=== PATIENT | male | born 1940 | race Caucasian/White ===

== ENCOUNTER → 2023-12-07 11:00 | Outpatient (REF) | payer MEDICARE, OTHER, SELFPAY ==
[2023-12-07 12:16] LABS: Blood Urea Nitrogen 27 mg/dl (9-20); Calcium 9.8 mg/dl (8.4-10.2); Carbon Dioxide 31 mmol/L (22-30); Chloride 96 mmol/L (98-107); Glucose 95 mg/dl (70-99); Potassium 4.5 mmol/L (3.5-5.1); Sodium 137 mmol/L (135-145); eGFR > 60.00
== END ==
LOC: REG 11:00
PROVIDERS: ATTENDING PHYSICIAN Internal Medicine; FAMILY PHYSICIAN Family Medicine
DX: I10 Essential (primary) hypertension (principal)
CPT/HCPCS: 36415; 80048

== ENCOUNTER → 2024-02-29 15:22 | Outpatient (REF) | payer MEDICARE, OTHER, SELFPAY | LOC: HWRAD 15:22 | PROVIDERS: ATTENDING PHYSICIAN Internal Medicine Critical Care Medicine; FAMILY PHYSICIAN Family Medicine | DX: J47.9 Bronchiectasis, uncomplicated (principal) | CPT/HCPCS: 71250 ==

== ENCOUNTER 2024-05-11 07:06 | Day surgery (SDC) | payer MEDICARE, OTHER, SELFPAY ==
--- NOTE | 2024-05-11 08:12 | ITS.CL.CARDI ---
Typing Pool Supervisor - Cardioversion
Cardioversion
Procedure Report:
Date of Procedure: 05/11/24
Procedure: Cardioversion.
Indication: Symptomatic atrial fibrillation.
Performing Physician: Yolande Phipps MD
Technique: The patient was brought to the holding area. Signed informed consent was obtained. A time out was called and performed. The patient was sedated by a member of the anesthesia service. Anticoagulation status was reviewed and was
appropriate. R-2 pads were placed anteriorly and posteriorly. A 200 J synchronized biphasic shock restored normal sinus rhythm without significant bradycardia. There were no complications.
Conclusion: Uncomplicated cardioversion from atrial fibrillation to sinus rhythm.
Recommendation: Routine post cardioversion care. Continue continuous churn buttermaker anticoagulation.
cc: joshua Mann
== END 2024-05-11 08:32 | disposition home or self-care (01) ==
LOC: CATH 07:06
PROVIDERS: ATTENDING PHYSICIAN Internal Medicine Cardiovascular Disease; FAMILY PHYSICIAN Family Medicine; OTHER PHYSICIAN Internal Medicine
DX: I48.0 Paroxysmal atrial fibrillation (principal); I45.10 Unspecified right bundle-branch block; I10 Essential (primary) hypertension; E78.5 Hyperlipidemia, unspecified; I25.10 Atherosclerotic heart disease of native coronary artery without angina pectoris; Z95.1 Presence of aortocoronary bypass graft; Z79.01 Long term (current) use of anticoagulants
CPT/HCPCS: 92960; 93005

== ENCOUNTER 2024-05-28 03:19 | Emergency (ER) | payer MEDICARE, OTHER, SELFPAY ==
[2024-05-28] VITALS (9 sets, daily range): BP systolic 127–176; BP diastolic 58–88; BMI 23.6
[2024-05-28 03:45] LABS: % Basophils 0.5 % (0-2); % Eosinophils 1.1 % (0-6); % Immature Granulocytes 0.4 % (0-0.5); % Lymphocytes 13.2 % (20.5-51.1); % Monocytes 8.8 % (1.7-9.3); Absolute Basophils 0.1 10^3/uL (0-0.2); Absolute Eosinophils 0.1 10^3/uL (0-0.7); Absolute Lymphocytes 1.3 10^3/uL (1.2-3.4); Absolute Monocytes 0.9 10^3/uL (0.1-0.6); Absolute Neutrophils 7.7 10^3/uL (1.4-6.5); Hematocrit 40.5 % (39.0-52.0); Hemoglobin 14.2 g/dL (13.0-18.0); Mean Corp Hgb Conc. 35.1 g/dL (33.0-37.0); Mean Corpuscular Hgb 32.7 pg (27.0-31.0); Mean Corpuscular Volume 93.3 fL (80.0-94.0); Mean Platelet Volume 9.4 fL (7.4-10.4); Nucleated Red Blood Cells % 0 % (-); Platelet Count 318 10^3/uL (130-400); Red Blood Cell Count 4.34 10^6/uL (4.70-6.10); Red Cell Dist. Width 13.3 % (11.5-14.5); White Blood Cell Count 10.1 10^3/uL (4.8-10.8)
[2024-05-28 04:04] LABS: ALT (SGPT) 35 U/L (0-50); AST (SGOT) 33 U/L (17-59); Albumin 4.5 g/dl (3.5-5.0); Alkaline Phosphatase 70 U/L (38-126); Blood Urea Nitrogen 23 mg/dl (9-20); Calcium 9.7 mg/dl (8.4-10.2); Carbon Dioxide 26 mmol/L (22-30); Chloride 101 mmol/L (98-107); Estimated Creatinine Clearance 67 ml/min; Glucose 96 mg/dl (70-99); Potassium 4.6 mmol/L (3.5-5.1); Sodium 141 mmol/L (135-145); Total Bilirubin 0.7 mg/dl (0.2-1.3); Total Protein 7.3 g/dl (6.3-8.2); eGFR > 60.00
--- NOTE | 2024-05-28 06:48 | ED.GENMED ---
History of Present Illness
General
Chief Complaint: Numbness
Source: patient
Exam Limitations: none
Time Seen by Provider: 05/28/24 06:37
History of Present Illness
History of Present Illness:
See MDM
Past History
Past History
ED Past Medical History: Arrthythmia and HTN
ED Past Surgical History: None
Social History
Tobacco: Non-smoker
Alcohol: None
Personal:
Living: with family
Phy Exam
Physical Exam
Physical Exam:
See MDM
Course
Orders/Labs/Results
Orders:
Orders
05/28/24 03:28
Electrocardiogram (*1) Urgent
Reason for Study: Other
Other Reason for Exam: AFIB hx.
05/28/24 03:29
EKG- Treatment ONCE
05/28/24 03:30
Complete Blood Count/With Diff Urgent
Comprehensive Metabolic Panel Urgent
05/28/24 06:47
CT Head W/o Iv Contrast Urgent
Comment:
Reason For Exam: left facial numbness
Abnormal Lab Results
05/28/24
03:30
RBC 4.34 L 10^6/uL
(4.70-6.10)
MCH 32.7 H pg
(27.0-31.0)
Absolute Neuts (auto) 7.7 H 10^3/uL
(1.4-6.5)
Absolute Monos (auto) 0.9 H 10^3/uL
(0.1-0.6)
Neutrophils % 76.0 H %
(42.2-75.2)
Lymphocytes % 13.2 L %
(20.5-51.1)
BUN 23 H mg/dl
(9-20)
05/28/24 03:30
05/28/24 03:30
Vital Signs
Initial and Last Documented VS:
Initial Vital Signs
BP
176/81
05/28/24 03:20
Last Documented Vital Signs
Temp Pulse Resp BP Pulse Ox
97.6 F 82 20 127/88 99
05/28/24 07:24 05/28/24 08:12 05/28/24 08:12 05/28/24 08:12 05/28/24 08:12
MDM/Problems Addressed
Differential Diagnosis Includes:
HPI and MDM Narrative:
84-year-old male presenting for evaluation of left facial numbness. It occurred overnight. Patient states the left facial numbness is actually improving but he is now noticing on the right side. He is unsure if he had a mini stroke or this is
related to somewhat chronic sinusitis. He is compliant with Eliquis. He is worried that his blood pressure was elevated. It is resolving without intervention.
Blood work was done prior to my evaluation and there is no significant abnormalities. Will obtain CT head given that he is on Eliquis. He does understand that he is already medically optimized in regards to stroke prevention
Physical exam
General: Well appearing and non-toxic
HEENT: protecting airway
Neck: appears supple
CV: No evidence of cyanosis. Regular rate and rhythm
Resp: No accessory muscle use
Abd: Non-distended
Extremities: No deformities
Neuro: alert. No focal deficits. Sensation grossly intact to both sides of face
Psych: Normal affect
Skin: Intact
Problems Addressed including Acute and Chronic Conditions affecting care:
1. Resolving facial tingling
Acuity: acute
Prognosis: stable
Details: Will obtain CT head
Updates
[address] head negative. Patient is comfortable going home
Prior to discharge, radiology indicating that there is some evidence of acute sinusitis on the CT scan. This was relayed to patient and he states he will take some Augmentin that he has at home
Differential Diagnosis (but not limited to): TIA, hypocalcemia, sinusitis
Testing considered: Troponin but denies chest pain
Drug therapy (if applicable): OTC meds, please see d/c instruction regarding Rx drugs
Amount and/or Complexity of Data Reviewed
Clinical info obtained from: Patient
External data reviewed: N/A
Labs I independently reviewed (but not limited to): White blood cell count normal, calcium level normal
Radiology: The CT scan was personally and independently reviewed. In addition, official CT report reviewed.
Pulse Ox: not hypoxic
EKG independently reviewed: Sinus rhythm, normal axis, no STEMI
Litigation Associate: Sinus rhythm
Critical Care: N/A
Risk of Complication:
Social Determinants of health: Good social support
Discussed with other providers: N/A
Escalation of Care includes Admit/Obs: After being observed in the Emergency Department, pt stable for discharge.
Occasional wrong word or 'sound a like' substitutions may have occurred due to the inherent limitations of voice recognition software. Read the chart carefully and recognize, using context, where substitutions have occurred.
*Critical Care Note
Total Time (30-74mins, 75-104mins- exclusive of procedures): Not Applicable
ED Attending Note
-
Portions of this chart may have been created with voice recognition software.� Occasional wrong word or��sound alike� substitutions may have occurred due to the inherent limitations of voice recognition software.
Discharge Plan
Departure
Patient Disposition: Home (Routine Discharge)
Date of Disposition: 05/28/24
Time of Disposition: 07:57
Patient with high blood pressure during this ER visit?: Yes
Discharge Problem:
Facial numbness
Instructions: Paresthesia (DC), BLOOD PRESSURE
Prescriptions:
No Action
diltiazem HCl 120 MG capsule,extended release 24hr
120 mg PO Q12H
ramipril 10 MG capsule
10 mg PO DAILY
ezetimibe 10 MG tablet
10 mg PO HS
rosuvastatin 20 MG tablet
20 mg PO QPM
Eliquis 5 MG tablet
5 mg PO BID
coenzyme [id number] 1 CAP capsule
300 mg PO DAILY
Patient Comments:
300 mg once a day
nitroglycerin 0.4 MG tablet, sublingual
0.4 mg sublingual DIRECTED PRN (Reason: chest pain)
finasteride 5 MG tablet
5 mg PO HS
omega [id number] oil [Fish Oil] 1 EACH capsule
1 ea PO DAILY
multivitamin with folic acid [Tab-A-Ilana] 1 TABLET tablet
1 tab PO DAILY
montelukast [Singulair] 10 mg Tablet
10 mg PO DAILY
Referrals:
Nikolay Maurice DO [Family Provider] -
Activity Restrictions/Additional Instructions:
Please return for any worsening symptoms.
You may return at any time if you have further concerns.
Please follow up with your doctor at the first available appointment, preferably this week.
Thank you for choosing [facility].
Interventions
Interventions:
*Risk Screen - Suicide Last Done: 05/28/24 03:21
*General Assessment Last Done: 05/28/24 03:21
*Neglect/Abuse Screening Last Done: 05/28/24 03:21
ED- Fall Risk Assessment Last Done: 05/28/24 07:24
*ED COVID-19 Vaccine History Last Done: 05/28/24 03:33
*Nursing Disposition Last Done: 05/28/24 08:13
ED- Neurological Assessment Last Done: 05/28/24 07:24
Discharge Date and Time
Print Language: JAPANESE
== END 2024-05-28 08:24 | disposition home or self-care (01) ==
LOC: EMR 03:19
PROVIDERS: Emergency Medicine; EMERGENCY PHYSICIAN Student in an Organized Health Care Education/Training Program; FAMILY PHYSICIAN Family Medicine
DX: R20.0 Anesthesia of skin (principal); I10 Essential (primary) hypertension; I48.91 Unspecified atrial fibrillation; Z79.01 Long term (current) use of anticoagulants
CPT/HCPCS: 99284; 70450; 80053; 85025; 93005

== ENCOUNTER → 2024-06-02 15:02 | Outpatient (REF) | payer MEDICARE, OTHER, SELFPAY | LOC: HWRAD 15:02 | PROVIDERS: ATTENDING PHYSICIAN Family Medicine | DX: M54.2 Cervicalgia (principal) | CPT/HCPCS: 72052 ==

== ENCOUNTER → 2024-06-03 13:00 | Outpatient (REF) | payer MEDICARE, OTHER, SELFPAY ==
[2024-06-03 13:24] LABS: % Basophils 0.3 % (0-2); % Eosinophils 0.6 % (0-6); % Immature Granulocytes 0.3 % (0-0.5); % Lymphocytes 15.8 % (20.5-51.1); % Monocytes 10.7 % (1.7-9.3); % Neutrophils 72.3 % (42.2-75.2); Absolute Eosinophils 0.1 10^3/uL (0-0.7); Absolute Lymphocytes 1.2 10^3/uL (1.2-3.4); Absolute Monocytes 0.8 10^3/uL (0.1-0.6); Absolute Neutrophils 5.6 10^3/uL (1.4-6.5); Hematocrit 36.6 % (39.0-52.0); Hemoglobin 12.7 g/dL (13.0-18.0); Mean Corp Hgb Conc. 34.7 g/dL (33.0-37.0); Mean Corpuscular Hgb 32.8 pg (27.0-31.0); Mean Corpuscular Volume 94.6 fL (80.0-94.0); Mean Platelet Volume 9.5 fL (7.4-10.4); Nucleated Red Blood Cells % 0 % (-); Platelet Count 286 10^3/uL (130-400); Red Blood Cell Count 3.87 10^6/uL (4.70-6.10); Red Cell Dist. Width 13.4 % (11.5-14.5); White Blood Cell Count 7.8 10^3/uL (4.8-10.8)
[2024-06-03 13:39] LABS: ALT (SGPT) 30 U/L (0-50); AST (SGOT) 28 U/L (17-59); Albumin 4.1 g/dl (3.5-5.0); Alkaline Phosphatase 66 U/L (38-126); Blood Urea Nitrogen 21 mg/dl (9-20); Calcium 9.2 mg/dl (8.4-10.2); Carbon Dioxide 28 mmol/L (22-30); Chloride 99 mmol/L (98-107); Glucose 107 mg/dl (70-99); Potassium 4.5 mmol/L (3.5-5.1); Sodium 138 mmol/L (135-145); Total Bilirubin 0.4 mg/dl (0.2-1.3); Total Protein 6.7 g/dl (6.3-8.2); eGFR > 60.00
== END ==
LOC: REG 13:00
PROVIDERS: ATTENDING PHYSICIAN Internal Medicine Cardiovascular Disease; FAMILY PHYSICIAN Family Medicine; OTHER PHYSICIAN Internal Medicine
DX: I48.0 Paroxysmal atrial fibrillation (principal); I45.10 Unspecified right bundle-branch block; I25.10 Atherosclerotic heart disease of native coronary artery without angina pectoris; Z01.818 Encounter for other preprocedural examination
CPT/HCPCS: 36415; 80053; 85025; 86850; 86900; 86901; 93005

== ENCOUNTER → 2024-06-06 14:19 | Outpatient (REF) | payer MEDICARE, OTHER, SELFPAY | LOC: RAD 14:19 | PROVIDERS: ATTENDING PHYSICIAN Family Medicine | DX: I65.23 Occlusion and stenosis of bilateral carotid arteries (principal); R20.0 Anesthesia of skin | CPT/HCPCS: 93880 ==

== ENCOUNTER → 2024-06-17 07:42 | Outpatient (REF) | payer MEDICARE, OTHER, SELFPAY | LOC: HWRAD 07:42 | PROVIDERS: ATTENDING PHYSICIAN Surgery Vascular Surgery; FAMILY PHYSICIAN Family Medicine | DX: I65.23 Occlusion and stenosis of bilateral carotid arteries (principal) | CPT/HCPCS: 70496; 70498; Q9967 ==

== ENCOUNTER → 2024-06-21 07:01 | Outpatient (REF) | payer MEDICARE, OTHER, SELFPAY | LOC: HWRCS 07:01 | PROVIDERS: ATTENDING PHYSICIAN Internal Medicine; FAMILY PHYSICIAN Family Medicine | DX: I48.0 Paroxysmal atrial fibrillation (principal); I45.10 Unspecified right bundle-branch block; I25.10 Atherosclerotic heart disease of native coronary artery without angina pectoris; Z95.1 Presence of aortocoronary bypass graft; I10 Essential (primary) hypertension; I36.1 Nonrheumatic tricuspid (valve) insufficiency; I48.3 Typical atrial flutter | CPT/HCPCS: 93306 ==

== ENCOUNTER 2024-06-27 07:30 | Day surgery (SDC) | payer MEDICARE, OTHER, SELFPAY ==
[2024-06-03 12:52] VITALS: BMI 24.8
[2024-06-10 14:05] LABS: Aldosterone, Serum 8.1 ng/dL; Aldosterone/Renin Activ Ratio 0.3 ratio (<=25.0); Renin Activity Results 27.5 ng/mL/hr
[2024-06-27] VITALS (21 sets, daily range): BP systolic 97–149; BP diastolic 55–78
[2024-06-27] MEDS: NSS 500 IV (09:05)
[2024-06-27] MEDS: PROSCAR 5 MG PO (09:09)
--- NOTE | 2024-06-27 13:16 | ITS.CL.ABL ---
Sql Engineer - Ablation
Ablation
Procedure Report:
AFIB ablation:
Mr. Feliciano is a very pleasant 84 yr old gentleman with symptomatic persistent AF s/p AF and flutter ablation with PVI and CTI ablation on 12/12/21 who presented with atypical atrial flutter / fibrillation and was extremely symptomatic requiring
cardioversion and presented today to the EP lab for atrial fibrillation / flutter ablation.
Date of the Procedure:
06/27/2024
Indications:
Persistent atrial fibrillation / atrial flutter
Pre-Operative Diagnosis:
Persistent atrial fibrillation / atrial flutter
Post-Operative Diagnosis:
Persistent atrial fibrillation / atrial flutter
Procedure Performed:
Atrial fibrillation ablation with Pulsed-Field approach for pulmonary vein isolation
Posterior wall isolation
Roof dependent atrial flutter ablation.
Performing Physician:
Heidi Green MD
Assistants:
EP staff
Anesthesia:
See anesthesia records
Detailed Description of the Procedure:
Written informed consent was obtained from the patient after a full explanation of the risks and benefits of the procedure including the risks of sedation and anesthesia.
The patient was brought to the electrophysiology laboratory in stable condition in fasting state. Continuous electrocardiographic and hemodynamic monitoring was initiated.
The initial rhythm was sinus.
The procedure site was meticulously prepared with surgical scrub and allowed to dry with no pooling. Sterile draping was applied to cover the procedure site. The image intensifier was draped with sterile bag and positioned over the patient. After
infusion of local anesthetic, vascular access was obtained under ultrasound guidance and sheaths were placed over guide wire as detailed below.
Sheath and Catheter Placement:
In the right femoral vein, an 8-Bulgarian sheath was placed under ultrasound guidance for use during the ablation procedure and a mapping catheter was intermittently placed in the high right atrium, right ventricle, left atrium. In the right femoral
vein, another 9-Fr sheath was placed for use during intra-cardiac echo procedure.
The sheaths were upgraded as needed during the case. Intra-cardiac catheters were positioned using direct fluoroscopic guidance. Decapolar catheter advanced into CS position. ICE catheter was placed in RA. The following catheters / sheaths were
placed
Sheaths:
��������� 15Fr steerable sheath (FlexCath Cross�, [employer]) in right femoral vein in right femoral vein
��������� 9Fr in right femoral vein
Catheters:
��������� Pentaray mapping catheter � at locations of RA, LA
��������� PulseSelect� PFA catheter
��������� ICE catheter -AcuNav - at locations of RA, SVC, and RV.
��������� Decapolar Bard catheter in RA and CS
Intracardiac ECHO:
An 8-Bulgarian AcuNav intracardiac ECHO (ICE) probe was advanced through the 9-Bulgarian sheath in the right femoral vein into the right atrium under fluoroscopic and ICE ultrasound image guidance and a baseline ECHO study was performed. The left atrial
size was dilated. There was moderate tricuspid regurgitation. The aortic valve was grossly normal. There was normal left ventricular systolic functions. There is no pericardial effusion. All the four veins were identified and has flow identified.
During the procedure, ICE was used for monitoring of complications, guidance of trans-septal puncture, monitor the catheter position and tracking ablation lesions. No change in the pericardial space noted throughout the procedure.
Trans-septal Puncture:
Heparin was initiated and infused to maintain appropriate ACT. A J-tipped guidewire was advanced through the 8-Bulgarian sheath in the right femoral vein into the superior vena cava under fluoroscopic and ICE guidance. The 8-Bulgarian sheath was exchanged
for a FlexCath Cross sheath which was advanced into the superior vena cava. An AcClarivoy transseptal access system was utilized to perform the trans-septal puncture. The apparatus was withdrawn until it was in contact with the fossa ovalis. The
position was adjusted based on fluoroscopy and ultrasound images from ICE. Under fluoroscopic, hemodynamic and ICE ultrasound guidance, left atrium was cannulated by advancing the needle. Once atrial septum was cannulated, the needle was pulled back
and a guide wire was advanced through the needle into the left atrium. The guide wire was advanced into the left superior pulmonary vein. Both the sheath and the dilator was advanced into the left atrium. The dilator with the needle was withdrawn.
Blood was aspirated from the FlexCath cross sheath and arterial blood confirmed. The sheath was flushed. Saline injection noted into the left atrium on ICE. The mapping catheter was advanced in the Agilis sheath into the left pulmonary vein. Left
atrial pressure was measured.
3D Electroanatomic Mapping:
Using the Pentaray mapping catheter advanced through sheath into the left atrium, an electroanatomic map (EAM) of the left atrium was created using CARTO mapping system. The map was used for localization of catheter position and tacking of ablation
lesions. The EAM of the left atrium showed 4 pulmonary veins with two left sided and two right sided veins electrically isolated frin the body the LA. There was extensive areas of low voltage noted in the left atrium with minimal electrical activity
in the posterior wall in atrial fibrillation.
While mapping patient went into atrial flutter 360 msec. It was sustained and appeared to be coming from the LA with roof dependence. The mapping required addition sensing wire and decapolar was placed. Patient was terminated with mapping catheter
causing ectopy.
The LA was dilated in size.
Following the EAM, preparation were made for ablation.
Ablation:
Ablation # 1: Pulmonary vein Isolation:
The left sided veins neded extension of their WACA lesions and right sided had larger are on the RSPV and narrow RSPV WACA lesions and decision was made to extend the antral lesions.
Glycopyrrolate 0.2 mg was given prior to the placement of ablation. Using mEgo� pulsed field ablation system, pulmonary vein isolation was achieved. First the ablation catheter was placed in the LSPV and ostial ablation lesions were performed
in a counter clock li approach all around the PV ostium circumferentially. Then the catheter was placed on the antral location and multiple ablation lesions were placed circumferentially on the antrum of the vein.
In the similar fashion, the LIPV were isolated.
Then the catheter was moved to right sided veins. The ostial and antral ablations were placed as noted above to the RSPV and RIPV.
The arrhtyhmia was mainly coming from LA and mapping showed it is roof dependent atrial flutter.
Ablation # 2: Atrial flutter ablation:
The atrial flutter was mapped and was 370 ms cycle length. Using the pulsed select ablation catheter, the roof of the left atrium was ablated. The tachycardia terminated into normal sinus rhythm.
Further ablation lesions were placed on the posterior wall at the remaining channels there was connecting. No sign of any electrical activity left on the posterior wall at the end of the case.
Ablation # 3: Posterior wall isolation:
Using the pulsed field ablation catheter, the catheter was placed on the posterior wall and moved around the posterior wall to have adequate contact and ablations were placed isolating the posterior wall.
Post ablation Electroanatomic mapping:
Once ablation was completed, the EAM of the LA was done again in sinus rhythm with excellent demarcation of LA myocardium and isolated antral tissue.
EPS and Confirmation of the PVI and bidirectional block:
Following achievement of entrance block at the pulmonary veins, pacing from the pentaray catheter in each of the four veins at 10 milliamps for 2 milliseconds showed entrance and exit block. All PVI were rechecked at the end of the case and remained
isolated with dissociated and local capture with pacing. Entrance and exit block were demonstrated in all veins.
Procedure End
ICE study was done again that showed no epicardial accumulation. No complications noted.
Following the completion of the EP study, catheters were removed. Protamine 40 mg was given at the end of the procedure and ACT was checked repeatedly. The sheaths were removed and hemostasis achieved with VASCADE and manual compression after
acceptable ACT is achieved.
Left atrial Pressure:
Pre-Procedure: Mean LA pressure was 11mmHg
Post-Procedure: Mean LA pressure was 9mmHg
Post-Procedure: Mean LR pressure was 5mmHg
Estimated Blood loss:
<10 cc
Specimens Removed:
None.
Implants / Devices:
None
Urine output:
None
Packs / Drains/ Tubes:
None
Instrument / Sponge Count Correct:
Yes
Complications of the Procedure:
None
Condition of Patient at Time of Transfer:
Hemodynamically stable with no neurological or vascular compromise.
Summary:
Successful atrial fibrillation ablation with Pulsed Field approach for pulmonary vein isolation, posterior wall isolation and atypical roof dependent flutter ablation
Figures from the Procedure:
Figure 1: The electroanatomic mapping (EAM) of the left atrium with bipolar voltage (purple indicates normal electrical activity with rod as no myocardial muscle electric activity indicating a line of block or scar.
[2024-06-27] MEDS: TYLENOL 650 MG PO (13:37)
[2024-06-27] MEDS: ANESTHETIC LOZENGE 1 LOZENGE PO (13:39)
--- NOTE | 2024-06-27 15:46 | W.PN.UPDATE ---
Update Note
Progress Note Update
Pt seen post PFA. Right groin site with vascade closure, no ht/bleeding, oob ambulating, urinating without difficulty. Post EKG NSR 80s w/inc RBBB as before, no acute changes. Resume eliquis tonight, continue other meds as before. Followup at [facility] as
scheduled. Home today if groin site/tele remain stable.
== END 2024-06-27 15:30 | disposition home or self-care (01) ==
LOC: CATH 07:30
PROVIDERS: ATTENDING PHYSICIAN Internal Medicine Cardiovascular Disease; FAMILY PHYSICIAN Family Medicine; OTHER PHYSICIAN Internal Medicine; OTHER PHYSICIAN Physician Assistant Medical
DX: I48.19 Other persistent atrial fibrillation (principal); I48.92 Unspecified atrial flutter; I10 Essential (primary) hypertension; Z95.1 Presence of aortocoronary bypass graft; I25.10 Atherosclerotic heart disease of native coronary artery without angina pectoris; Z95.5 Presence of coronary angioplasty implant and graft; E78.5 Hyperlipidemia, unspecified; K44.9 Diaphragmatic hernia without obstruction or gangrene; K21.9 Gastro-esophageal reflux disease without esophagitis; J44.9 Chronic obstructive pulmonary disease, unspecified; R00.1 Bradycardia, unspecified; I45.10 Unspecified right bundle-branch block; R91.8 Other nonspecific abnormal finding of lung field; J45.30 Mild persistent asthma, uncomplicated; J47.9 Bronchiectasis, uncomplicated; J18.9 Pneumonia, unspecified organism; Z79.01 Long term (current) use of anticoagulants
CPT/HCPCS: C1730; C1733; C1769; C1732; C1892; C1759; 36415; 82088; 84244; 85347; 93005; 93655; 93656; 93657; C1760

== ENCOUNTER → 2024-07-18 08:51 | Outpatient (REF) | payer MEDICARE, OTHER, SELFPAY ==
[2024-07-18 11:06] LABS: Cortisol, Random 10.7 ug/dl; TSH Reflex To Free T4 1.71 uIU/ml (0.47-4.68)
== END ==
LOC: REG 08:51
PROVIDERS: ATTENDING PHYSICIAN Specialist; FAMILY PHYSICIAN Family Medicine
DX: R63.4 Abnormal weight loss (principal); R09.89 Other specified symptoms and signs involving the circulatory and respiratory systems
CPT/HCPCS: 36415; 82533; 83835; 84443

== ENCOUNTER → 2024-08-05 07:03 | Outpatient (REF) | payer MEDICARE, OTHER, SELFPAY | LOC: RAD 07:03 | PROVIDERS: ATTENDING PHYSICIAN Specialist; FAMILY PHYSICIAN Family Medicine | DX: R79.89 Other specified abnormal findings of blood chemistry (principal); R09.89 Other specified symptoms and signs involving the circulatory and respiratory systems | CPT/HCPCS: 93975 ==

== ENCOUNTER → 2024-08-22 08:38 | Outpatient (REF) | payer MEDICARE, OTHER, SELFPAY | LOC: RAD 08:38 | PROVIDERS: ATTENDING PHYSICIAN Surgery | DX: K44.9 Diaphragmatic hernia without obstruction or gangrene (principal) | CPT/HCPCS: 74246 ==

== ENCOUNTER 2024-09-08 06:26 | Day surgery (SDC) | payer MEDICARE, OTHER, SELFPAY | END 2024-09-08 09:54 | disposition home or self-care (01) | LOC: GI 06:26 | PROVIDERS: ATTENDING PHYSICIAN Internal Medicine Gastroenterology | DX: K44.9 Diaphragmatic hernia without obstruction or gangrene (principal); Q39.9 Congenital malformation of esophagus, unspecified; K29.70 Gastritis, unspecified, without bleeding | CPT/HCPCS: 43239; 88305; 88342 ==

== ENCOUNTER → 2024-10-24 09:45 | Outpatient (REF) | payer MEDICARE, OTHER, SELFPAY ==
[2024-10-24 11:39] LABS: ALT (SGPT) 29 U/L (0-50); AST (SGOT) 27 U/L (17-59); Albumin 4.1 g/dl (3.5-5.0); Alkaline Phosphatase 71 U/L (38-126); Blood Urea Nitrogen 29 mg/dl (9-20); Calcium 9.3 mg/dl (8.4-10.2); Carbon Dioxide 30 mmol/L (22-30); Chloride 100 mmol/L (98-107); Glucose 88 mg/dl (70-99); HDL Cholesterol 48 mg/dl; LDL Cholesterol, Calculated 53 mg/dl; Potassium 4.7 mmol/L (3.5-5.1); Sodium 139 mmol/L (135-145); Total Bilirubin 0.6 mg/dl (0.2-1.3); Total Cholesterol 113 mg/dl (50-199); Triglyceride 60 mg/dl (10-149); Very Low Density Lipoprotein 12 mg/dl (0-30); eGFR > 60.00
== END ==
LOC: REG 09:45
PROVIDERS: ATTENDING PHYSICIAN Internal Medicine; FAMILY PHYSICIAN Family Medicine
DX: E78.2 Mixed hyperlipidemia (principal)
CPT/HCPCS: 36415; 80053; 80061

== ENCOUNTER 2024-10-26 08:41 | Day surgery (SDC) | payer MEDICARE, OTHER, SELFPAY ==
[2024-10-24 08:33] VITALS: BMI 24.4
== END 2024-10-26 11:00 | disposition home or self-care (01) ==
LOC: CATH 08:41
PROVIDERS: ATTENDING PHYSICIAN Internal Medicine
DX: I48.0 Paroxysmal atrial fibrillation (principal); I48.92 Unspecified atrial flutter; I10 Essential (primary) hypertension; E78.5 Hyperlipidemia, unspecified; I25.10 Atherosclerotic heart disease of native coronary artery without angina pectoris; Z95.1 Presence of aortocoronary bypass graft; Z95.5 Presence of coronary angioplasty implant and graft; K21.9 Gastro-esophageal reflux disease without esophagitis; J44.9 Chronic obstructive pulmonary disease, unspecified; Z79.01 Long term (current) use of anticoagulants
CPT/HCPCS: 92960; 93005

== ENCOUNTER 2024-12-12 17:08 | Inpatient (IN) | payer MEDICARE, OTHER, SELFPAY ==
[2024-11-28 14:11] VITALS: BMI 24.4
[2024-12-12] VITALS (14 sets, daily range): BP systolic 120–172; BP diastolic 51–80; BMI 24.4; BMI 26.2
[2024-12-12] MEDS: TYLENOL 1000 MG PO (11:13)
[2024-12-12] MEDS: NORMOSOL-R/PLASMALYTE-A 1000 IV (11:14)
--- NOTE | 2024-12-12 12:01 | HP.FOC2 ---
Focused History & Physical
Chief Complaint
HPI:
Chief Complaint: Symptomatic type III paraesophageal hernia
HPI / Indication for Planned Procedure: Patient is an 84-year-old male recently seen in outpatient surgical evaluation secondary to a progressively symptomatic type III paraesophageal hernia. He has modest to moderate dysphagia at times. He has
occasional regurgitation with lying flat and elevates the head of his bed to avoid symptoms. Upper GI endoscopy on 09/08/2024 confirmed the presence of a large hiatal hernia, irregular Z-line, mild inflammation within the stomach.
CT imaging has confirmed the presence of a sizable type III paraesophageal hernia containing at least 50% of the stomach within the intrathoracic space and a crural defect approximately 4 to 5 cm in width. He presents today for scheduled operative
correction.
Relevant Past Medical History: Other (P A-fib/flutter, hypertension, hyperlipidemia, CAD, PEH/GERD, bradycardia, incomplete right bundle branch block, COPD, pulmonary nodule, asthma, bronchiectasis, BPH)
Relevant Social History: Negative
Relevant Family History: Negative
Relevant Past Surgical History: Positive for (Multiple ablation procedures, multiple cardioversions, inguinal hernia repair and shoulder arthroscopy)
Review of Systems
Review of Pertinent Systems: All Systems Negative
Medication
See Medication form for detailed medications: Yes
Medication List (including Herbals & OTC):
apixaban 5 mg tablet (Eliquis) 5 mg PO BID 02/23/19
diltiazem HCl 120 mg capsule,extended release 24 hr 120 mg PO BID 02/23/19
ezetimibe 10 mg tablet 10 mg PO 1500 02/23/19
rosuvastatin 20 mg tablet 20 mg PO 1500 02/23/19
nitroglycerin 0.4 mg sublingual tablet 0.4 mg sublingual DIRECTED PRN chest pain 09/24/20
coenzyme Q10 100 mg capsule (CoQ-10) 100 mg PO QPM 06/02/24
finasteride 5 mg tablet 5 mg PO HS 06/27/24
hydrochlorothiazide 25 mg tablet 25 mg PO DAILY 10/20/24
multivitamin 1 tab PO DAILY 10/20/24
ramipril 2.5 mg capsule 2.5 mg PO HS 10/20/24
ramipril 5 mg capsule 5 mg PO BID 12/05/24
Medications Reviewed: Yes
Allergies and Reactions
Patient has Allergies: No
Noted Allergies and Reactions:
Allergy/AdvReac Type Severity Reaction Status Date / Time
No Known Allergies Allergy Verified 12/12/24 10:50
Pertinent Physical Exam
All Other Systems: Negative
Head/Neck: Normal
Lungs: Normal
Heart: Normal
Abdomen: Normal
Neurological: Normal
Diagnosis / Assessment
84-year-old male presenting for scheduled operative correction of a symptomatic type III paraesophageal hernia
Plan / Procedure
Robotic assisted laparoscopic repair of paraesophageal hernia with probable fundoplication, possible mesh; intraoperative EGD
Anesthesia/Sedation to be done by Anesthesia Provider: Yes
--- NOTE | 2024-12-12 12:06 | W.SUR.PREOP ---
Pre-Operative Surgical Note
-
I have examined this patient prior to the performance of the scheduled procedure.
The patient's condition is unchanged from the time of the current History and
Physical and the patient is able to undergo the scheduled procedure.
--- NOTE | 2024-12-12 17:02 | W.IMMPOSTOP ---
Addendum entered and electronically signed by Jose Oneill MD 12/13/24 16:27:
#[id number]
Original Note:
Surgical Immed Post Op Note
-
Primary Surgeon: Jose Oneill MD
Assisting Surgeon: Maricel RIOS
Pre-op Diagnosis: Large type III PEH
Post-op Diagnosis: Large type III PEH
Procedure Performed: RAL PEH repair with mesh, Toupet fundoplication; intraop EGD
Anesthesia Type: GETA + 0.25% Marcaine
Specimen / Cultures: none
Estimated Blood Loss: 20mL
Complications: none immediate
Operative Findings: Large type III paraesophageal hernia with majority of the stomach within the intrathoracic space and large hiatal hernia sac predominantly within the right chest. Entire hernia sac and contents fully reduced. Esophageal
mobilization to allow for 3 cm intra-abdominal esophageal length without tension. Phasix ST mesh pledgeted posterior crural closure (1.5 cm x 5 cm strip x 2 placed on the right and left coco). Posterior crural closure with 0 silk. Right anterior
lateral and left anterior lateral crural closure with 0 silk. 58 [place] bougie placed to confirm size of crural closure and assist with formation of Toupet fundoplication. No evidence of pleural injury during dissection.
Patient with atrial fibrillation with RVR intraoperatively controlled with beta-blockade and Cardizem drip with subsequent adequate rate control and hemodynamic stability. Prior hx of PAfib, was in sinus rhythm at start of procedure.
Postop will monitor in IMU
Patient's firer marine, Dr. Mann, consulted and updated postoperatively via [place] text.
--- NOTE | 2024-12-12 17:24 | CON.CAR ---
Addendum entered and electronically signed by Polo Mann MD 12/12/24 17:53:
84 yo male with paroxysmal A fib s/p ablation x2, then DCCV 10/2024, CAD/CABG is admitted s/p para-esophageal hernia repair. We are consulted for recurrence of A fib with RVR. He is lethargic post op. Exam with tachy, irregular rhythm, no murmurs,
no edema. Tele: A fib with RVR.
A fib with RVR. Eliquis on hold for 72 hrs (discussed with surgical team). Will focus on rate control. Continue diltiazem drip overnight. Requires monitoring on tele.
Original Note:
Consultation
Consultation Request
Date/Time Consultation Requested: 12/12/241699
Date/Time Consultation Performed: 12/12/241714
Requesting Provider: Dr. Oneill
Performing Provider: Aga KIDD for Dr. Mann
Reason for Consultation: AFIB
Medical History
-
Chief Complaint: paraesophageal hernia surgery
History of Present Illness:
84 y/o male (cardiology patient of Dr. Mann) with PAF/flutter hx ablation 2021 and 2023, recent CV 10/2024 (on Eliquis, though held for surgery), CAD s/p CABG 1998, hypertension, moderate TR, pulm HTN, and COPD is s/p surgery for his paraesophageal
hernia. We are consulted for AFIB with RVR intra-op. Post-op, he feels 'wiped out' (s/p surgery), but has no CP or palpitations. He remains in AFIB. Rates in 120's currently. BP is stable. He is in no distress at the time of my assessment.
Past Medical History
Past Medical History: Arrhythmias, CAD, COPD, HTN and Other (as above)
Social History
Tobacco: Non-Smoker
Family History
Family History: Reviewed & Not Pertinent
Allergies / Home Medications
Allergy/AdvReac Type Severity Reaction Status Date / Time
No Known Allergies Allergy Verified 12/12/24 10:50
�Medication �Instructions �Recorded �Confirmed �Type
apixaban 5 mg tablet (Eliquis) 5 mg PO BID 02/23/19 12/12/24 History
diltiazem HCl 120 mg 120 mg PO BID 02/23/19 12/12/24 History
capsule,extended release 24 hr
ezetimibe 10 mg tablet 10 mg PO 1500 02/23/19 12/12/24 History
rosuvastatin 20 mg tablet 20 mg PO 1500 02/23/19 12/12/24 History
nitroglycerin 0.4 mg sublingual 0.4 mg sublingual DIRECTED PRN 09/24/20 12/12/24 History
tablet chest pain
coenzyme Q10 100 mg capsule 100 mg PO QPM 06/02/24 12/12/24 History
(CoQ-10)
finasteride 5 mg tablet 5 mg PO HS 06/27/24 12/12/24 History
hydrochlorothiazide 25 mg tablet 25 mg PO DAILY 10/20/24 12/12/24 History
multivitamin 1 tab PO DAILY 10/20/24 12/12/24 History
ramipril 2.5 mg capsule 2.5 mg PO HS 10/20/24 12/12/24 History
ramipril 5 mg capsule 5 mg PO BID 12/05/24 12/12/24 History
Review of Systems
-
History Source: Patient
All other systems: Negative unless noted
Constitutional: Other ('wiped out')
Physical Exam
Vital Signs
Temp Pulse Resp BP Pulse Ox
97.5 F 115 17 129/67 99
12/12/24 17:00 12/12/24 17:15 12/12/24 17:15 12/12/24 17:15 12/12/24 17:15
Physical Exam
General: Well Developed, Well Nourished and No Apparent Distress
HEENT: Normocephalic and Anicteric
Respiratory: Clear, Non Labored Respirations and Other (on face mask post-op)
Cardiac: Irregular Rhythm
Musculoskeletal: No Edema
Skin: Warm and Dry
Neuro: Awake, Alert and Oriented
Psych: Calm
Impression / Plan
-
Paraesophageal hernia s/p repair, Dr. Oneill 12/12/24:
-post-op management per surgery
-post-op EKG ordered
AFIB with RVR, paroxysmal, recurrent:
-continue IV diltiazem, which requires intensive monitoring
-Eliquis held- resume when safe post-op (sounds like that will be 72 hours post surgery)
-follow telemetry
CAD with hx CABG:
-stable without CP
-on Eliquis, statin as OP
HTN:
-stable
-monitor post-op on dilt drip
Data Reviewed
-
EKG: Tracing Personally Visualized and interpreted (NSR pre-op. New one ordered.)
Radiology: Report Reviewed by me (upper GI series 08/22/24: Large hiatal hernia. No overt evidence for volvulus or obstruction. 2. Moderate presbyesophagus.)
Medical Tests (Nuc Med, Echo etc): Report Reviewed by me (echo 06/21/24: Normal LV size and systolic function. LVEF 55 to 60%. Mild concentric left ventricular hypertrophy. Normal diastolic function. Normal RV size and function. Mild to
moderate tricuspid regurgitation. Mildly elevated PASP (43 mmHg). )
Labs: Labs Reviewed by me
[2024-12-12] MEDS: CARDIZEM 125 IV (17:29)
[2024-12-12] MEDS: NSS 1000 IV (17:38)
[2024-12-12] MEDS: PROSCAR 5 MG PO (20:30)
[2024-12-12] MEDS: DILAUDID 0.5 MG IV (20:31)
--- NOTE | 2024-12-12 22:14 | PTCARENOTE ---
Received verbal report from DAYNA Cornell. Pt arrived to floor via bed. Oxygen saturation is 97% on 2L. NSR on monitor, confirmed with EKG. Pt had a Cardizem gtt infusing at time of arrival to floor. Pt's hr dropped to 60-70s. BENJA Worrell made aware,
Cardizem gtt is no longer infusing (see worklist). Pt c/o 03/16 pain throughout his abdomen and both of his shoulders, PRN IV Dilaudid administered per Rx (see MAR). Pt has NSS infusing at 100 mL/hr. Assessment and VS as documented. Admission
completed. Pt resting in bed with call albarado in reach.
[2024-12-13] VITALS (10 sets, daily range): BP systolic 122–148; BP diastolic 56–93; BMI 26.1
[2024-12-13] MEDS: NSS 1000 IV (03:05)
[2024-12-13 03:26] LABS: Hematocrit 38.6 % (39.0-52.0); Mean Corp Hgb Conc. 36.3 g/dL (33.0-37.0); Mean Corpuscular Hgb 34.6 pg (27.0-31.0); Mean Corpuscular Volume 95.3 fL (80.0-94.0); Mean Platelet Volume 9.2 fL (7.4-10.4); Platelet Count 270 10^3/uL (130-400); Red Blood Cell Count 4.05 10^6/uL (4.70-6.10); White Blood Cell Count 12.9 10^3/uL (4.8-10.8)
[2024-12-13 03:48] LABS: Blood Urea Nitrogen 26 mg/dl (9-20); Calcium 8.9 mg/dl (8.4-10.2); Carbon Dioxide 29 mmol/L (22-30); Chloride 99 mmol/L (98-107); Estimated Creatinine Clearance 53 ml/min; Glucose 147 mg/dl (70-99); Potassium 5.7 mmol/L (3.5-5.1); Sodium 137 mmol/L (135-145); eGFR > 60.00
--- NOTE | 2024-12-13 04:12 | W.PN.UPDATE ---
Update Note
Progress Note Update
K level is 5.7 this am, one time order of Davema was given.
[2024-12-13] MEDS: LOKELMA 5 GRAM PO (04:38)
[2024-12-13] MEDS: DILAUDID 0.25 MG IV (04:40)
--- NOTE | 2024-12-13 07:14 | W.PN.GS2 ---
Addendum entered and electronically signed by Jose Oneill MD 12/13/24 07:44:
Lokelma administered this AM
repeat K in afternoon
hold HCTZ
Original Note:
Today's Communication / Plan
-
`
Assessment / Plan
-
Assessment: 84-year-old male POD #1 status post RAL repair paraesophageal hernia with toupet fundoplication; EGD
Intraoperative A-fib with RVR - appears to predominantly be in sinus rhythm now
History P A-fib, CAD status post CABG, hypertension, COPD
AFVSS
Doing well postop
Hyperkalemia
Plan: Multimodal pain control options -stopping Toradol/add p.o. Tylenol
Renewed IV fluids
Clear liquid diet and advance to full liquids as tolerated today with supplements; okay for p.o. meds
Up out of bed to chair/ambulate/encourage I-S use
Appreciate cardiology assistance with postoperative care
Eliquis/therapeutic anticoagulation will be held 72 hours postop
Lovenox/SCD/ambulation for VTE prophylaxis
Protonix for GI prophylaxis (gastritis/esophagitis visualized on endoscopy)
Subjective Data
-
Date of Service: December 13, 2024
Patient seen and examined.
No significant postop abdominal pain
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
Offers no additional complaints.
Feels well. No nausea
Objective Data
-
Intake and Output
12/12/24 12/13/24 12/14/24
06:59 06:59 06:59
Intake Total 810 / 810
Output Total 950 / 950
Balance -140 / -140
Intake:
IV fluids (Total) 800 / 800
Normosol 100 / 100
IV piggybacks 10 / 10
Output:
Urine, Ramirez 950 / 950
Vital Signs
Temp Pulse Resp BP Pulse Ox
98.4 F 76 17 141/76 95
12/13/24 02:54 12/13/24 06:00 12/13/24 06:00 12/13/24 06:00 12/13/24 06:00
Lab Results
12/13/24 03:13
12/13/24 03:13
Calcium 8.9 mg/dl (8.4-10.2) 12/13/24 03:13
Physical Exam
-
NAD AAO x 3
Sinus rhythm with PACs
ABD: Soft, nondistended, minimal incisional tenderness. Incisions with glue dressings.
Patient has a ramirez catheter: No
[2024-12-13] MEDS: NSS (PRESERVATIVE FREE) 10 ML IV (07:53)
[2024-12-13] MEDS: PROTONIX IV 40 MG IV (07:54)
--- NOTE | 2024-12-13 08:25 | W.PN.CD ---
Addendum entered and electronically signed by Dillan Boyce MD 12/13/24 08:49:
Resume other anti-HTN meds when able
Resume Eliquis when OK from surgical perspective
We will sign off please call with questions/concerns.
Original Note:
Today's Communication / Plan
-
Start PO dilt
EKG today now back in SR
Impression / Plan
-
Paraesophageal hernia s/p repair, Dr. Oneill 12/12/24:
-post-op management per surgery
-post-op EKG ordered
AFIB with RVR, paroxysmal, recurrent:back IN SR
-Resume PO dilt, now back in SR confirm with ECG
-Eliquis held- resume when safe post-op (sounds like that will be 72 hours post surgery)
-follow telemetry
CAD with hx CABG:
-stable without CP
-on Eliquis, statin as OP
HTN:
-stable
-monitor post-op on dilt drip
Subjective: Feels good concerned about BP meds
Physical Exam
Vital Signs/Labs
Vital Signs
Temp Pulse Resp BP Pulse Ox
98.1 F 76 17 141/76 95
12/13/24 07:05 12/13/24 06:00 12/13/24 06:00 12/13/24 06:00 12/13/24 06:00
12/12/24 12/13/24 12/14/24
06:59 06:59 06:59
Actual Weight 182 lb
12/13/24 03:13
12/13/24 03:13
Physical Exam
Constitutional: No acute distress and Comfortable
EENT: Anicteric
Cardiovascular: Rhythm & rate is regular
Respiratory: Respiratory effort normal and Lungs clear to auscul.
GI: Soft
Neuro/Psych: AO x 3
Data Reviewed
-
Date of Service: December 13, 2024
EKG: Tracing Personally Visualized and interpreted (sr)
Echo: Report Reviewed by me
Labs: Labs Reviewed by me
[2024-12-13] MEDS: CARDIZEM CD 120 MG PO ×2 (08:45→20:34)
[2024-12-13] MEDS: TYLENOL 650 MG PO ×2 (12:00→20:34)
--- NOTE | 2024-12-13 16:47 | CM ---
Patient with Dx Paraesophageal hernia s/p repair, AFIB with RVR. O2 2L. Telemetry- NSR. Full liquids. Receiving IV Dilaudid prn, IV Protonix.
Met with patient who resides alone in a 2 story house with 1 step at entrance.
The patient was independent in ADLs and ambulation.
He was active, plays golf, shops and drives.
DME - nebulizer
No prior VN or SNF.
PCP - Nikolay Maurice
Pharmacy - [facility], [place]
No CM d/c needs identified.
Plan home.
[2024-12-13] MEDS: LOVENOX 40 MG SC (17:10)
[2024-12-13 17:35] LABS: Potassium 4.7 mmol/L (3.5-5.1)
--- NOTE | 2024-12-13 18:27 | PTCARENOTE ---
Received pt from IMU, walked from wheelchair to bed. Pt ambulatory in room independently. Abdomen with 5 stab sites and glue present. Pt ordering full liqs for dinner. Acclimated to room.
[2024-12-13] MEDS: ALTACE 5 MG PO (21:01)
[2024-12-13] MEDS: PROSCAR 5 MG PO (22:26)
[2024-12-13] MEDS: ALTACE 2.5 MG PO (22:26)
--- NOTE | 2024-12-14 07:12 | W.PN.GS2 ---
Today's Communication / Plan
-
d/c
Assessment / Plan
-
Assessment: 84-year-old male POD #2 status post RAL repair paraesophageal hernia with toupet fundoplication; EGD
Intraoperative A-fib with RVR - sinus rhythm now
History P A-fib, CAD status post CABG, hypertension, COPD
AFVSS
Doing very well well postop
Hyperkalemia - resolved after Lokelma
Plan: stable for d/c home
post op fundoplication diet on d/c instructions reviewed
hold eliquis 72hrs post op
resume HCTZ tomorrow
follow up in 2-3 weeks
Subjective Data
-
Date of Service: December 14, 2024
pt seen and examined
feels well and ready for d/c
minimal post op discomfort, tylenol only for pain relief
torie full liquids, no dysphage, no GERD
Objective Data
-
Intake and Output
12/13/24 12/14/24 12/15/24
06:59 06:59 06:59
Intake Total 810 / 810 400 / 400
Output Total 950 / 950
Balance -140 / -140 400 / 400
Intake:
IV fluids (Total) 800 / 800 400 / 400
Normosol 100 / 100
IV piggybacks
Output:
Urine, Lee 950 / 950
Other:
Number of approximated MODERATE 2
amounts of urine
Vital Signs
Temp Pulse Resp BP Pulse Ox
98.5 F 86 16 141/69 95
12/13/24 23:19 12/13/24 23:19 12/13/24 23:19 12/13/24 23:19 12/13/24 23:19
Calcium 8.9 mg/dl (8.4-10.2) 12/13/24 03:13
Physical Exam
-
NAD AAOx3
ABD: soft, ND, mild TTP at incision sites
incisions with glue dressings
--- NOTE | 2024-12-14 07:19 | W.DS.TRANS ---
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
-
Discharge Instructions:
Sleep Apnea Risk Low
Discharge Diagnosis/Procedures Robotic assisted laparoscopic repair of
paraesophageal hernia, toupet fundoplication;
EGD
Diet Other diet
Additional Diets See attached postoperative instructions below.
Activity No strenuous activity
Additional Activity No lifting over 15 pounds for 3 months postop.
Walking, standing, stairs and routine light
activities are all okay as tolerated.
Driving Restrictions No driving for 2 to 3 days or if using narcotics
Bathing Restrictions OK to Shower
Wound Care Glue at surgical sites typically peels off in 2
to 3 weeks
Instructions:
Stand-Alone Forms:
Changes to Home Medications: No
Discharge Medications:
DC Medications w/original date entered in [employer]
apixaban 5 mg tablet (Eliquis) 5 mg PO BID Blood Clot Prevention/Tx 02/23/19
diltiazem HCl 120 mg capsule,extended release 24 hr 120 mg PO BID Heart Disease/Condition 02/23/19
ezetimibe 10 mg tablet 10 mg PO 1500 High Cholesterol 02/23/19
rosuvastatin 20 mg tablet 20 mg PO 1500 High Cholesterol 02/23/19
nitroglycerin 0.4 mg sublingual tablet 0.4 mg sublingual DIRECTED PRN chest pain 09/24/20
coenzyme Q10 100 mg capsule (CoQ-10) 100 mg PO QPM Supplement 06/02/24
finasteride 5 mg tablet 5 mg PO HS Urinary Issue 06/27/24
hydrochlorothiazide 25 mg tablet 25 mg PO DAILY Blood Pressure 10/20/24
multivitamin 1 tab PO DAILY Supplement 10/20/24
ramipril 2.5 mg capsule 2.5 mg PO HS Blood Pressure 10/20/24
ramipril 5 mg capsule 5 mg PO BID Blood Pressure 12/05/24
acetaminophen 325 mg tablet 650 mg (2 x 325 mg) PO Q4HPRN PRN mild pain #1 tab 12/14/24
polyethylene glycol 3350 17 gram/dose oral powder (Miralax) 4 g PO DAILY PRN Constipation #119 grams 12/14/24
Home Medication Changes
Pending Results: No
[2024-12-14 07:30] VITALS: BP 164/81
[2024-12-14 07:57] LABS: Hematocrit 39.2 % (39.0-52.0); Hemoglobin 13.6 g/dL (13.0-18.0); Mean Corp Hgb Conc. 34.7 g/dL (33.0-37.0); Mean Corpuscular Volume 95.1 fL (80.0-94.0); Mean Platelet Volume 9.5 fL (7.4-10.4); Platelet Count 271 10^3/uL (130-400); Red Blood Cell Count 4.12 10^6/uL (4.70-6.10); Red Cell Dist. Width 13.4 % (11.5-14.5); White Blood Cell Count 15.1 10^3/uL (4.8-10.8)
[2024-12-14 08:08] LABS: Blood Urea Nitrogen 19 mg/dl (9-20); Calcium 9.1 mg/dl (8.4-10.2); Carbon Dioxide 32 mmol/L (22-30); Chloride 97 mmol/L (98-107); Estimated Creatinine Clearance 65 ml/min; Glucose 96 mg/dl (70-99); Potassium 4.3 mmol/L (3.5-5.1); Sodium 137 mmol/L (135-145); eGFR > 60.00
[2024-12-14] MEDS: NSS (PRESERVATIVE FREE) 10 ML IV (08:23)
[2024-12-14] MEDS: CARDIZEM CD 120 MG PO (08:23)
[2024-12-14] MEDS: ALTACE 5 MG PO (08:23)
[2024-12-14] MEDS: PROTONIX IV 40 MG IV (08:23)
--- NOTE | 2024-12-14 09:12 | CM ---
Chart reviewed and plan is to home today no needs.
Plan; Home no needs.
== END 2024-12-14 10:16 | disposition home or self-care (01) | DRG 327 ==
LOC: 4 WEST ACU 17:08
PROVIDERS: ADMITTING PHYSICIAN Surgery; CONSULT PHYSICIAN Internal Medicine; FAMILY PHYSICIAN Family Medicine
PROC: 0DJ08ZZ Inspection of Upper Intestinal Tract, Via Natural or Artificial Opening Endoscopic (ICD-10-PCS; 2024-12-13)
PROC: 3E0M45Z Introduction of Adhesion Barrier into Peritoneal Cavity, Percutaneous Endoscopic Approach (ICD-10-PCS; 2024-12-13)
PROC: 0BQT4ZZ Repair Diaphragm, Percutaneous Endoscopic Approach (ICD-10-PCS; 2024-12-13)
PROC: 8E0W4CZ Robotic Assisted Procedure of Trunk Region, Percutaneous Endoscopic Approach (ICD-10-PCS; 2024-12-13)
PROC: 0DV44ZZ Restriction of Esophagogastric Junction, Percutaneous Endoscopic Approach (ICD-10-PCS; 2024-12-13)
DX: K44.9 Diaphragmatic hernia without obstruction or gangrene (principal); I97.791 Other intraoperative cardiac functional disturbances during other surgery; I48.0 Paroxysmal atrial fibrillation; I25.10 Atherosclerotic heart disease of native coronary artery without angina pectoris; Z95.1 Presence of aortocoronary bypass graft; I10 Essential (primary) hypertension; J44.89 Other specified chronic obstructive pulmonary disease; E78.5 Hyperlipidemia, unspecified; I27.20 Pulmonary hypertension, unspecified; K21.00 Gastro-esophageal reflux disease with esophagitis, without bleeding; N40.0 Benign prostatic hyperplasia without lower urinary tract symptoms; R13.10 Dysphagia, unspecified; Z79.01 Long term (current) use of anticoagulants; Z79.899 Other long term (current) drug therapy
CPT/HCPCS: 80048; 84132; 85027; 93005; C1781

== ENCOUNTER 2025-01-19 23:41 | Inpatient (IN) | payer MEDICARE, OTHER, SELFPAY ==
[2025-01-19 20:19] VITALS: BP 104/62
[2025-01-19 20:44] LABS: % Basophils 0.2 % (0-2); % Eosinophils 0.3 % (0-6); % Immature Granulocytes 0.4 % (0-0.5); % Lymphocytes 8.2 % (20.5-51.1); % Monocytes 9.3 % (1.7-9.3); % Neutrophils 81.6 % (42.2-75.2); Absolute Eosinophils 0.1 10^3/uL (0-0.7); Absolute Immature Granulocytes 0.1 10^3/uL (0-0.05); Absolute Lymphocytes 1.5 10^3/uL (1.2-3.4); Absolute Monocytes 1.7 10^3/uL (0.1-0.6); Absolute Neutrophils 15.2 10^3/uL (1.4-6.5); Hematocrit 43.3 % (39.0-52.0); Hemoglobin 14.8 g/dL (13.0-18.0); Mean Corp Hgb Conc. 34.2 g/dL (33.0-37.0); Mean Corpuscular Hgb 33.1 pg (27.0-31.0); Mean Corpuscular Volume 96.9 fL (80.0-94.0); Mean Platelet Volume 9.3 fL (7.4-10.4); Nucleated Red Blood Cells % 0 % (-); Platelet Count 320 10^3/uL (130-400); Red Blood Cell Count 4.47 10^6/uL (4.70-6.10); Red Cell Dist. Width 14.2 % (11.5-14.5); White Blood Cell Count 18.6 10^3/uL (4.8-10.8)
[2025-01-19 20:52] VITALS: BP 114/76; BMI 24.0
[2025-01-19 21:01] VITALS: BP 142/69
[2025-01-19 21:08] LABS: ALT (SGPT) 40 U/L (0-50); AST (SGOT) 36 U/L (17-59); Alkaline Phosphatase 83 U/L (38-126); Blood Urea Nitrogen 35 mg/dl (9-20); Calcium 9.3 mg/dl (8.4-10.2); Carbon Dioxide 28 mmol/L (22-30); Estimated Creatinine Clearance 39 ml/min; Glucose 139 mg/dl (70-99); NT-proBNP 6800 pg/ml; Total Bilirubin 0.7 mg/dl (0.2-1.3); Total Protein 7.6 g/dl (6.3-8.2); Troponin I 0.014 ng/ml; eGFR 46.19
[2025-01-19 21:16] LABS: Chloride 98 mmol/L (98-107); Potassium 4.6 mmol/L (3.5-5.1); Sodium 136 mmol/L (135-145)
--- NOTE | 2025-01-19 22:26 | ED.GENMED ---
History of Present Illness
General
Chief Complaint: Heart Rate Problem
Time Seen by Provider: 01/19/25 20:54
History of Present Illness
History of Present Illness:
84-year-old male with history of A-fib on diltiazem and Eliquis presenting to the emergency department for palpitations. Patient has paroxysmal atrial fibrillation. He was supposed to come to the hospital tomorrow to be a direct admission for
Tikosyn dosing. However, for the past 3 days has been more symptomatic from his atrial fibrillation and is felt lightheaded and dizzy. Prior to arrival was feeling more lightheaded which prompted him to come to the hospital. He did call the
belting and webbing inspector prior to his arrival. He reports compliance with his medications. He denies any chest pain or difficulty breathing. Denies abdominal pain or GI complaints. Denies fever or recent illness. Denies additional acute medical complaints
Past History
Past History
ED Past Medical History: Arrthythmia and HTN
ED Past Surgical History: None
Social History
Tobacco: Non-smoker
Alcohol: None
Personal:
Living: with family
Phy Exam
Physical Exam
Physical Exam:
General: Well-appearing, no clinical signs of dehydration, nontoxic and in no acute distress
HEENT: protecting airway
Neck: appears supple
CV: Tachycardic, irregularly irregular rhythm, no evidence of cyanosis
Resp: No accessory muscle use, no increased work of breathing, lungs clear to auscultation bilaterally
Abd: No distention
Extremities: No deformities, no swelling
Neuro: alert, no focal neurologic deficit
: deferred
Rectal: deferred
Psych: Normal affect
Skin: Intact
Course
Orders/Labs/Results
Orders:
Orders
01/19/25 20:18
Electrocardiogram (*1) Urgent
Reason for Study: Other
Other Reason for Exam: Respiratory Distress
Cardiac Monitoring- Treatment ONCE
EKG- Treatment ONCE
IV Insert/Care/Rem.- Treatment PRN
CR Chest - 2 Views Urgent
Comment:
Reason For Exam: respiratory distress
O2 Therapy [RESP] Urgent
Titrate/Wean O2 to maintain O2 sat greater than (%): 93
Special Instructions: TO MAINTAIN CONTINUOUS O2 SATS >/= 93%
Pulse Ox/cont/shift [RESP] Urgent
Quantity: 1
Special Instructions: continuous pulse ox
01/19/25 20:37
Complete Blood Count/With Diff Urgent
Comprehensive Metabolic Panel Urgent
NT-proBNP Urgent
Troponin I Urgent
01/19/25 23:00
Flush (0.9% Sodium Chloride) [Flush (Nss)] See Dose Instructions IV PER PROTOCOL
Abnormal Lab Results
01/19/25
20:37
WBC 18.6 H 10^3/uL
(4.8-10.8)
RBC 4.47 L 10^6/uL
(4.70-6.10)
MCV 96.9 H fL
(80.0-94.0)
MCH 33.1 H pg
(27.0-31.0)
Abs Immat Gran (auto) 0.1 H 10^3/uL
(0-0.05)
Absolute Neuts (auto) 15.2 H 10^3/uL
(1.4-6.5)
Absolute Monos (auto) 1.7 H 10^3/uL
(0.1-0.6)
Neutrophils % 81.6 H %
(42.2-75.2)
Lymphocytes % 8.2 L %
(20.5-51.1)
BUN 35 H mg/dl
(9-20)
Creatinine 1.5 H mg/dL
(0.7-1.3)
Glucose 139 H mg/dl
(70-99)
01/19/25 20:37
01/19/25 20:37
Vital Signs
Initial and Last Documented VS:
Initial Vital Signs
Temp Pulse Resp BP Pulse Ox
98.5 F 101 20 104/62 98
01/19/25 20:19 01/19/25 20:19 01/19/25 20:19 01/19/25 20:19 01/19/25 20:19
Last Documented Vital Signs
Temp Pulse Resp BP Pulse Ox
98.2 F 104 22 142/69 94
01/19/25 20:54 01/19/25 22:15 01/19/25 22:15 01/19/25 21:01 01/19/25 22:00
MDM/Problems Addressed
MDM/Problems Addressed:
84-year-old male with history of A-fib on diltiazem and Eliquis presenting for palpitations. Vital signs significant for tachycardia.
On exam patient is resting comfortably, no acute distress. Notes that his symptoms have somewhat improved. Heart rate is now in the low 100s. Patient was supposed to be a direct admission tomorrow to start Tikosyn. Will alert cardiology and
laboratory analysis with ultimate plan for admission, for continued management of his atrial fibrillation.
22:20 - She discussed with cardiology, plan to admit to cardiology service.
22:50 - Of note, patient does have leukocytosis and chest x-ray shows concern for possible pneumonia. However patient denies any new acute cough. He denies any recent fever. Denies any present respiratory symptoms. There is mention of possible
pulmonary fibrosis or scarring, and patient notes that he has had this in the past. Holding off on any antibiotics at this time.
*EKG
Interpreted by ED Provider?: Yes
EKG Intrepretation Date: 01/19/25
EKG Intrepretation Time: 22:28
Interpretation: abnormal
Comparison EKG: changes noted
Heart Rate: 133
Rate: tachycardiac
Rhythm: a-fib
[place]: left axis deviation
Interval: normal interval
QRS Pattern: normal QRS
Ischemia: non-specific ST changes
*Critical Care Note
Total Time (30-74mins, 75-104mins- exclusive of procedures): Not Applicable
ED Attending Note
-
Portions of this chart may have been created with voice recognition software.� Occasional wrong word or��sound alike� substitutions may have occurred due to the inherent limitations of voice recognition software.
Discharge Plan
Departure
Patient Disposition: Admit
Date of Disposition: 01/19/25
Time of Disposition: 22:29
Presentation/result/management discussed w/ accepting MD/DO: Hospitalist
Condition: Good
Discharge Problem:
Atrial fibrillation, Heart palpitations
Prescriptions:
No Action
diltiazem HCl 120 MG capsule,extended release 24hr
120 mg PO BID@0300,1500
ezetimibe 10 MG tablet
10 mg PO DAILY@1500
rosuvastatin 20 MG tablet
20 mg PO DAILY@1900
nitroglycerin 0.4 MG tablet, sublingual
0.4 mg sublingual [id number] PRN (Reason: chest pain)
coenzyme Q10 [CoQ-10] 100 mg Capsule
100 mg PO DAILY@1900
finasteride 5 mg Tablet
5 mg PO QPM
multivitamin Tablet
1 tab PO DAILY
ramipril 2.5 mg Capsule
2.5 mg PO DAILY@1900
ramipril 5 mg Capsule
5 mg PO BID@0300,1500
hydrochlorothiazide 25 mg Tablet
25 mg PO DAILY
Eliquis 5 mg Tablet
5 mg PO BID@0300,1500
Referrals:
Nikolay Maurice DO [Family Provider] -
Interventions
Interventions:
*Risk Screen - Suicide Last Done: 01/19/25 20:19
*General Assessment Last Done: 01/19/25 20:54
*Neglect/Abuse Screening Last Done: 01/19/25 20:19
*ED- Fall Risk Assessment Last Done: 01/19/25 20:54
*ED COVID-19 Vaccine History Last Done: 01/19/25 20:54
ED- Cardiac Assessment Last Done: 01/19/25 20:53
ED- Pulmonary Assessment Last Done: 01/19/25 20:53
Discharge Date and Time
Print Language: CZECH
[2025-01-20] VITALS (8 sets, daily range): BP systolic 94–137; BP diastolic 50–84; BMI 24.0; BMI 23.5
--- NOTE | 2025-01-20 00:17 | HPS.HSE ---
Family Physician
-
Family Physician: Nikolay Maurice
Chief Complaint
-
fast HR
History of Present Illness
84-year-old male with history of recent paraesophageal hernia repair (12/2024),HTN, CABGx1 1998, BPH, HLD, CAD, p A-fib (multiple ablations and cardioversions in past) on diltiazem and Eliquis presenting to the emergency department for palpitations.
He was supposed to come to the hospital tomorrow to be a direct admission for Tikosyn loading,However, for the past 3 days has been more symptomatic from his atrial fibrillation and has felt lightheaded and dizzy today prompting him to come to
hospital tonight. He did call the punch finisher prior to his arrival. He reports compliance with his medications. He denies any chest pain or difficulty breathing. Denies abdominal pain or GI complaints. Denies fever or recent illness. Denies
additional acute medical complaints.
Pt shows me on his phone that when laying still HR low 100s and with any activity can go to 120s. Last took cardizem and eliquis at 1500.
In ED:
WBC 18.5 (last in december)noted to be elevated to 18.6/ neutrophil 81.5- afebrile
CXR read as questionable bilat LL pneumonia (R>L) vs scarring
BNP 6800 (no previous value to compare).
Medical History
Past Medical History
Past Medical History: Reports Arrhythmia (afib (paroxysmal) ), CAD, HTN and Hypercholesterolemia
Additional Past Medical History:
BPH
chronic bronchitis?-sees dr millan and gets yearly ct scan
Past Surgical History: Reports Cardiac (CABG x1 1998)
Additional Past Surgical History:
12/14/24 paraesophageal hernia repair with mesh
Multiple ablations and cardioversions in past
Social History
Tobacco: Non-smoker
Alcohol: None
Drug: None
Personal:
Living: Alone
Employment: Retired
Family History
Family History: Not pertinent
Allergies / Home Medications
Allergies reflects when Allergies were last updated in [facility].
Home Medications with original date entered in [id number]
Allergy/Medication List:
Allergies
Allergy/AdvReac Type Severity Reaction Status Date / Time
No Known Allergies Allergy Verified 01/19/25 20:19
Home Medications
diltiazem HCl 120 mg capsule,extended release 24 hr 120 mg PO BID@0300,1500 Heart Disease/Condition 02/23/19
ezetimibe 10 mg tablet 10 mg PO DAILY@1500 High Cholesterol 02/23/19
rosuvastatin 20 mg tablet 20 mg PO DAILY@1900 High Cholesterol 02/23/19
nitroglycerin 0.4 mg sublingual tablet 0.4 mg sublingual [id number] PRN chest pain 09/24/20
coenzyme Q10 100 mg capsule (CoQ-10) 100 mg PO DAILY@1900 Supplement 06/02/24
finasteride 5 mg tablet 5 mg PO QPM Urinary Issue 06/27/24
multivitamin 1 tab PO DAILY Supplement 10/20/24
ramipril 2.5 mg capsule 2.5 mg PO DAILY@1900 Blood Pressure 10/20/24
ramipril 5 mg capsule 5 mg PO BID@0300,1500 Blood Pressure 12/05/24
apixaban 5 mg tablet (Eliquis) 5 mg PO BID@0300,1500 01/19/25
hydrochlorothiazide 25 mg tablet 25 mg PO DAILY 01/19/25
Review of Systems
-
History Source: Patient
A 12 point ROS was completed and negative except as noted: Yes
EENT: Reports Other (chronic post nasal drip)
Respiratory: Reports Other (states of 'lung problem' ? chronic bronchitis/copd (unsure of name))
Cardiac: Reports Palpitations (fast HR up to 140s last few days)
Abdomen/GI: Reports No Symptoms
: Reports Other (nocturia)
Musculoskeletal: Reports No Symptoms
Skin: Reports No Symptoms
Neurological: Reports Dizzy
Endocrine: Reports No Symptoms
Psych: Reports No Symptoms
Physical Exam
Vital Signs
Vital Signs
Temp Pulse Resp BP Pulse Ox
98.2 F 112 21 121/64 95
01/19/25 20:54 01/20/25 00:00 01/20/25 00:00 01/20/25 00:00 01/20/25 00:00
Physical Exam
General: Well Developed, Well Nourished, No Apparent Distress, Comfortable and Conversant
HEENT: NormoCephalic, Anicteric, Moist mucous membranes and Good Dentition
Respiratory: Crackles (bilateral base/middle lobes (pt states normal)) and Non Labored Respirations
Cardiac: Irregular Rhythm and Tachycardia
Breast: Deferred by me
GI: Soft
Rectal: Deferred by Provider
Genito-urinary: Deferred by me
Musculoskeletal: No Clubbing and No Cyanosis
Skin: Warm and Dry
Neuro: Awake, Alert, Oriented, AO x 3 and No Motor Deficits
Hematologic/Lymphatic: No Lymphadenopathy
Psych: Calm
Laboratory Results
-
01/19/25 20:37
01/19/25 20:37
Laboratory Results
Total Bilirubin 0.7 mg/dl (0.2-1.3) 01/19/25 20:37
AST 36 U/L (17-59) 01/19/25 20:37
ALT 40 U/L (0-50) 01/19/25 20:37
Alkaline Phosphatase 83 U/L (38-126) 01/19/25 20:37
Troponin I 0.014 ng/ml 01/19/25 20:37
Data Reviewed
-
Diagnostic Radiology: Discussed with Physician (cxr with possible bilat LL pneumonia vs scarring)
Medical Tests (Nuc Med, Echo, EKG etc): Report Reviewed by me and Discussed with Physician
Lab Data: Discussed with Physician
Impression/Plan
-
IMPRESSION:
atrial fibrillation starting tikosyn load 01/20
PLAN:
Admit to service of DR Seo
inpt IVU
#atrial fibrillation
-was scheduled to be direct admit 01/20 for tikosyn loading
-pt states of being in afib with high HR off and on for last few days. Today became dizzy prompting to come to ED
-has been complaint with cardizem and eliquis (last dose 1500 01/19)
-cont eliquis
#HTN
-cont ramipril
-hold HCTZ (last took 01/18)--cr now 1,5 (baseline 0.9)
#HLD
-cont ezetimbe
-cont rosuvastatin
#BPH
-cont finasteride
#leukocytosis
-WBC 18.6 neutrophils 81.2 (last wbc 15.1 12/14/24)
-CXR read as possible bilateral Lower lobe pneumonia R>L vs scarring--> pt denies s/s of infection. No fever/chills. His chronic cough is unchanged from his normal.
- States he has 'lung problem' name unknown and sees Dr Millan and gets yearly Ct chest (previous ones showed chronic inflammation/infection)
-Discussed with ED physician: given no symptoms currently will monitor off abx
-recheck cbc in am
-if pt becomes febrile: check Blood cultures, and start abx
#DILLAN
-creat 1.5 (baseline 0.9)
- hold HCTZ
- pt admits to not drinking much today.
-will give one bag 500ml nss x1
-bnp 6800--> but pt denies SOB. Does not appear overloaded.
-recheck BMP in am--> if still elevated may need to renally dose eliquis.
DVt proph: eliquis
Full code
[2025-01-20] MEDS: NSS 500 IV (02:35)
[2025-01-20] MEDS: ALTACE 5 MG PO ×2 (02:35→15:09)
[2025-01-20] MEDS: ELIQUIS 5 MG PO ×2 (02:36→15:09)
--- NOTE | 2025-01-20 03:06 | PTCARENOTE ---
Received pt from ER into 2255. Pt is AAOx3 A fib 100-120 on the monitor VSS. IVF @ 65 ml/HR. POC discussed with pt. Call albarado within reach
[2025-01-20 05:21] LABS: % Basophils 0.2 % (0-2); % Immature Granulocytes 0.3 % (0-0.5); % Lymphocytes 7.2 % (20.5-51.1); % Monocytes 11.3 % (1.7-9.3); Absolute Immature Granulocytes 0.1 10^3/uL (0-0.05); Absolute Lymphocytes 1.1 10^3/uL (1.2-3.4); Absolute Monocytes 1.7 10^3/uL (0.1-0.6); Hematocrit 41.4 % (39.0-52.0); Hemoglobin 14.3 g/dL (13.0-18.0); Mean Corp Hgb Conc. 34.5 g/dL (33.0-37.0); Mean Corpuscular Volume 95.6 fL (80.0-94.0); Mean Platelet Volume 9.5 fL (7.4-10.4); Nucleated Red Blood Cells % 0 % (-); Platelet Count 276 10^3/uL (130-400); Red Blood Cell Count 4.33 10^6/uL (4.70-6.10); Red Cell Dist. Width 14.2 % (11.5-14.5); White Blood Cell Count 14.8 10^3/uL (4.8-10.8)
[2025-01-20 05:39] LABS: Blood Urea Nitrogen 36 mg/dl (9-20); Calcium 8.9 mg/dl (8.4-10.2); Carbon Dioxide 30 mmol/L (22-30); Chloride 98 mmol/L (98-107); Estimated Creatinine Clearance 49 ml/min; Glucose 105 mg/dl (70-99); Potassium 4.5 mmol/L (3.5-5.1); Sodium 136 mmol/L (135-145); eGFR > 60.00
--- NOTE | 2025-01-20 09:17 | W.PN.CD ---
Addendum entered and electronically signed by Adal Phipps MD 01/20/25 11:46:
I saw and examined the patient.
The NIB FINISHER's note was reviewed and I agree with the note.
Comment: 84-year-old gent with past medical history of recurrent persistent atrial fibrillation status post PVI x 2, CAD, COPD, chronic PND, presented last night to the ED with increasing palpitations. Original plan was for admission today for
Tikosyn loading and possible cardioversion. Of note in the ED was noted to have chest x-ray with abnormality suggestive of possible bilateral pneumonia and a leukocytosis. He does have a chronic cough, may be more persistent lately with his
allergies. On exam he has irregularly irregular rate and rhythm, no murmur rubs gallops, bibasilar rales and some scant rhonchi were heard. Extremities were warm well-perfused clubbing cyanosis or edema. EKG showed atrial fibrillation with rapid
ventricular response QTc 423 ms, creatinine clearance is 49. In regards to his atrial fibrillation we will start Tikosyn 250 mg p.o. twice daily. Continue to monitor his EKG post Tikosyn initiation and dosing. Monitor on telemetry. This requires
intensive monitoring into the high risk drug. He has no chest pain but will continue chronic medications for his CAD with rosuvastatin and Zetia. In regards to his leukocytosis and abnormal chest x-ray, will ask pulmonary for their opinion on
whether or not this warrants any treatment. Blood pressure will be monitored. We need to stop his hydrochlorothiazide and diltiazem for his dofetilide initiation. Will add back medications as indicated, possibly bb.
Original Note:
Today's Communication / Plan
-
start Tikosyn and monitor.
possible b/l LL PNA, consult pulmonary for evaluation and management.
Impression / Plan
-
Afib - recurrent, RVR.
- symptomatic with palpitations and SOB/ALVARES.
- admitted for Tikosyn initiation.
- s/p CV 10/2024 restoring NSR.
- s/p ablation 12/2021 and again 06/2024 for Afib and Aflutter.
- on Eliquis for OAC, no missed doses. He takes Eliquis at 3am and 3pm.
- last dose of Diltiazem was yesterday; he also stopped HCTZ 2 days ago.
PNA - acute on b/l lower lobes on CXR.
- consult pulmonary for evaluation/management since he follows with Dr. Medeiros.
- has COPD and chronic post nasal drip on PRN antibiotic 'cocktail' per PCP and follows with Dr. Medeiros.
CAD - s/p CABG in 1998.
- stable w/o angina.
- continue medical therapy.
HTN - stable on meds, continue.
- monitor off HCTZ since starting Tikosyn.
HLD - stable on Crestor and Zetia with LDL < 55.
Hiatal hernia - s/p repair 12/12/[address] [facility] [address] Oneill.
Physical Exam
Vital Signs/Labs
Vital Signs
Temp Pulse Resp BP Pulse Ox
99.1 F 116 20 103/80 95
01/20/25 07:49 01/20/25 08:00 01/20/25 07:49 01/20/25 07:49 01/20/25 07:49
01/19/25 01/20/25 01/21/25
06:59 06:59 06:59
Actual Weight 164 lb 0.383 oz
01/20/25 04:57
01/20/25 04:57
01/19/25
20:37
Wto-N-Mwtoodkwpzf Pept 6800
LAB Results
01/19/25
20:37
Troponin I 0.014
Physical Exam
Constitutional: No acute distress
EENT: Anicteric, Moist mucous membranes and Other (dry cough)
Cardiovascular: Rhythm/rate is irregular (tachy)
Respiratory: Respiratory effort normal and Other (diminished b/l bases)
GI: Soft, Non tender and Normal bowel sounds
Neuro/Psych: Alert, Oriented and AO x 3
Other: Skin (warm, dry)
Data Reviewed
-
Date of Service: January 20, 2025
Medical Decision Making: External Notes
EKG: Tracing Personally Visualized and interpreted
X-Ray/CT/US/MRI/NUC/PET: Report Reviewed by me (CXR: Findings suggested mild bilateral lower lobe pneumonia. Progressed on the right. Stable on the left. Therefore, scarring/pulmonary fibrosis cannot excluded.)
Labs: Labs Reviewed by me
Old Records: Reviewed
--- NOTE | 2025-01-20 10:27 | W.CARD.TIKOS ---
Initiate Tikosyn
-
I verify that the patient has not taken any verapamil (Isoptin/Calan), ketoconazole (Nizoral), cimetidine (Tagamet), trimethoprim (Trimpex), trimethoprim/sulfamethoxazole (Bactrim), megesterol (Megace), prochlorperazine (Compazine),
hydrochlorothiazide (HCTZ), dolutegravir (Tivicay) or any Class I or Class III anti-arrhythmic within the last three days
AND
I verify that the patient has not taken amiodarone within the last THREE months, or that the patient's amiodarone plasma concentration is <0.3 mcg/mL.
Creatinine 1.2 mg/dL (0.7-1.3) 01/20/25 04:57
Estimated Creat Clear 49 ml/min 01/20/25 04:57
Does patient have a Ventricular Conduction Abnormality: No
I have assessed the baseline QTc interval (using QT for heart rate less than 60 bpm) and deemed the patient is appropriate for Dofetilide therapy. I understand that Tikosyn is contraindicated if the QTc is >440msec (500msec in patients with
ventricular conduction abnormalities).
Baseline QTc (in msec): 423
QTc interval is greater than 440msec without conduction abnormality OR greater than 500msec with a conduction abnormality, but acceptable to proceed per Cardiology attending.
Ordering Physician: Becka Phipps
[2025-01-20] MEDS: TIKOSYN 250 MCG PO ×2 (10:34→22:03)
[2025-01-20] MEDS: THERAGRAN 1 TABLET PO (10:36)
--- NOTE | 2025-01-20 11:23 | CON.PUL ---
Consultation
Consultation Request
Date/Time Consultation Requested: 01/20/2025-11 AM
Date/Time Consultation Performed: 01/20/2025-11:30 AM
Requesting Provider: Cardiology
Performing Provider: Dr. Villeda
Reason for Consultation: Shortness of breath and cough
Medical History
-
Chief Complaint: Shortness of breath
History of Present Illness:
84-year-old never smoking, male followed by Dr. Medeiros for postnasal drip and pulmonary infiltrates, who recently had paraesophageal hernia repair as well as multiple ablations was supposed to have direct admission for Tikosyn loading, but he
became more symptomatic with his atrial fibrillation including lightheadedness and shortness of breath-pulmonary was consulted for shortness of breath and chronic cough 01/20/25. . Shortness of breath is improved. He states his shortness of breath
is related to his atrial fibrillation. He is chronic postnasal drip and chronic cough. He states he had sinus surgery in the past which helped his postnasal drip and no one wants to do surgery on them anymore. He reports having a stash of
Augmentin and doxycycline for intermittent and recurrent bronchitis episodes. Currently denies any chest pain, chest tightness, productive cough, abdominal pain, nausea, aspiration, leg swelling, or focal weakness.
Past Medical History
Past Medical History: None ( Recent paraesophageal hernia repair- 12/2024. Hypertension. CAAD/CABG 1998. PAF/multiple ablations. Postnasal drip. Chronic recurrent bronchitis. Bronchiectasis. Pulmonary nodules. Asthma. BPH.. Hernia repair.
Bilateral rotator cuff repair)
Social History
Tobacco: Non-smoker
Family History
Family History: Reviewed & Not Pertinent
Allergies / Home Medications
Allergies
Allergy/AdvReac Type Severity Reaction Status Date / Time
No Known Allergies Allergy Verified 01/19/25 20:19
Home Medications
�Medication �Instructions �Recorded �Confirmed �Last Taken �Type
diltiazem HCl 120 mg 120 mg PO BID@0300,1500 Heart 02/23/19 01/19/25 01/19/25 History
capsule,extended release 24 hr Disease/Condition
ezetimibe 10 mg tablet 10 mg PO DAILY@1500 High 02/23/19 01/19/25 01/19/25 History
Cholesterol
rosuvastatin 20 mg tablet 20 mg PO DAILY@1900 High 02/23/19 01/19/25 01/19/25 History
Cholesterol
nitroglycerin 0.4 mg sublingual 0.4 mg sublingual [id number] PRN 09/24/20 01/19/25 Unknown History
tablet chest pain
coenzyme Q10 100 mg capsule 100 mg PO DAILY@1900 Supplement 06/02/24 01/19/25 01/19/25 History
(CoQ-10)
finasteride 5 mg tablet 5 mg PO QPM Urinary Issue 06/27/24 01/19/25 01/19/25 History
multivitamin 1 tab PO DAILY Supplement 10/20/24 01/19/25 01/19/25 History
ramipril 2.5 mg capsule 2.5 mg PO DAILY@1900 Blood Pressure 10/20/24 01/19/25 01/19/25 History
ramipril 5 mg capsule 5 mg PO BID@0300,1500 Blood 12/05/24 01/19/25 01/19/25 History
Pressure
apixaban 5 mg tablet (Eliquis) 5 mg PO BID@0300,1500 01/19/25 01/19/25 01/19/25 History
hydrochlorothiazide 25 mg tablet 25 mg PO DAILY 01/19/25 01/19/25 01/18/25 History
Review of Systems
-
Unable to Obtain full review of systems at this time due to: Other (Per HPI)
Vitals / Labs / Diagnostic Testing
Vital Signs
Temp Pulse Resp BP Pulse Ox
99.1 F 116 20 103/80 95
01/20/25 07:49 01/20/25 08:00 01/20/25 07:49 01/20/25 07:49 01/20/25 07:49
Lab Data
01/20/25 04:57
01/20/25 04:57
Diagnostic Testing:
Physical Exam
-
Exam:
Well-nourished and well-developed in no apparent distress
HEENT-atraumatic, normocephalic
Neck-supple, no JVD, no bruit
Heart-regular rate and rhythm-no murmurs, rubs or gallops.
Chest with few basilar crackles, few rhonchi and no wheezing
Back-no tenderness
Abdomen-soft, nontender, nondistended, no hepatosplenomegaly
Extremities-no cyanosis, clubbing, edema and good peripheral pulses
Integument-intact, no rashes, lesions or ecchymosis
Neurology-alert and oriented, nonfocal motor and sensory exam
Assessment
-
84-year-old never smoking, male followed by Dr. Medeiros for postnasal drip and pulmonary infiltrates, who recently had paraesophageal hernia repair as well as multiple ablations was supposed to have direct admission for Tikosyn loading, but he
became more symptomatic with his atrial fibrillation including lightheadedness and shortness of breath-pulmonary was consulted for shortness of breath and chronic cough 01/20/25.
Symptomatic atrial fibrillation with rapid ventricular response, palpitations with dizziness, lightheadedness.
Admitted for Tikosyn load
Abnormal chest x-ray with basilar infiltrates-possible pneumonia
Chronic cough.
Abnormal radiographs-see discussion below.
Leukocytosis.
Mild hyperglycemia
Conditions present prior to admission:
Recent paraesophageal hernia repair- 12/2024.
Hypertension.
CAD/CABG 1998.
PAF/multiple ablations.
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
Aspiration syndrome likely from large hiatal hernia-subsequent repair
Elevated IgE-1209.
Hypogammaglobulinemia-IgG3
Postnasal drip.
Chronic recurrent bronchitis.
Bronchiectasis.
Pulmonary nodules.
Asthma
GERD
BPH
Hernia repair. Bilateral rotator cuff repair
Plan
Mild respiratory decompensation, likely related to atrial fibrillation with rapid ventricular rate-less likely chronic pulmonary complaints.
Supplemental oxygen as needed.
Aspiration precautions.
Inhalers if needed-we'll avoid beta agonists with atrial fibrillation issues. For now.
Mucolytic's
Postnasal drip therapy.
Check sputum culture.
Observe off antibiotics.
Consider pro-calcitonin level
Chest x-ray with basilar infiltrates, slightly greater than previous, known to have basilar infiltrates on CT chest, clinically no pneumonia, however, with leukocytosis. If clinically deteriorates low threshold for antibiotic initiation.
Patient has 'cocktail' provided by primary and Dr. Medeiros in the past-'Augmentin/doxycycline' that he takes if he becomes ill.
Cardiology following-correspondence reviewed.
Tikosyn load.
Atrial fibrillation, rate controlled.
Atrial fibrillation-on Eliquis
Reviewed with cardiology and nursing
Last saw Dr. Meediros 06/03/24 and is rescheduled or canceled twice thereafter-recommend follow-up
Diagnostic data:
Chest x-ray 01/19/25-mild bilateral lower lobe pneumonia progressed on the right and stable on the left compared to February 2024
CT chest�03/01/2024, reviewed Emory Sanchez 06/03/2024 Bilateral lower lobe peribronchial thickening and patchy parenchymal opacities again most suggestive of a chronic infectious process. Compared to the chest CT from 09/08/2023, findings are
similar in the right lower lobe but have progressed in the left lower lobe.�2. Trace left pleural effusion.�3. Large hiatal hernia.4. Stable mildly enlarged mediastinal lymph nodes.
Pulmonary function testing ( 06/03/2024� ):FEV1: postbronchodilator 2.09 L at 77%FVC:3.52 L-91%FEV1/FVC ratio:59%T.4 L-77%RV:1.79 L -72%ERV:RV/TLC ratio:33%DLCO: 16.83-69%DLCO/VA: 91%
Data Reviewed
-
PFT: Report reviewed by me
EKG: Report reviewed by me
Radiology: Report reviewed by me
CT Scan: Report reviewed by me
Medical Tests (Nuc Med, Echo etc): Report reviewed by me
Labs: Labs reviewed by me
Old Records: Reviewed
Total Time Spent with Patient (in minutes): 75
--- NOTE | 2025-01-20 11:47 | CM ---
Chart reviewed. Patient is independent of ADLS, lives alone in a 2 [address], 1 MADDIE, 0 DME. Plan is for the patient to return home. CM to follow
--- NOTE | 2025-01-20 11:47 | CM ---
Pricing on Dofetilide through the patient's [facility] is $13 for a 30 day supply. Patient will need a 3 day supply to take home. CM to confirm availability at patient's pharmacy on discharge.
[2025-01-20] MEDS: ZETIA 10 MG PO (15:09)
[2025-01-20] MEDS: LOPRESSOR 12.5 MG PO (16:15)
[2025-01-20] MEDS: STERILE WATER FOR INJECTION 10 ML IV (16:15)
[2025-01-20] MEDS: TYLENOL 650 MG PO ×2 (16:15→20:39)
[2025-01-20] MEDS: ROCEPHIN 1000 MG IV (16:16)
--- NOTE | 2025-01-20 17:30 | PTCARENOTE ---
Pt received this am in afib, rate in the 100's to 140's. Denies any pain or sob. Tikosyn started as ordered and tolerated well. Temp 101.6 at 1610. Pt had coughed up some green sputum which was sent for C&S. Medicated with tylenol 650mg po at 1615.
Temp down to 98.8 at 1700. Heart rate up to the 160's with the fever, presently in the 100's to 120's.
[2025-01-20] MEDS: NSS 250 IV (17:47)
[2025-01-20] MEDS: PROSCAR 5 MG PO (18:01)
[2025-01-20] MEDS: CRESTOR 20 MG PO ×2 (18:01)
[2025-01-20 18:20] LABS: Lactic Acid 0.9 mmol/L (0.7-2.0)
[2025-01-20 18:29] LABS: COVID-19 Antigen Negative (Negative)
[2025-01-20] MEDS: VIBRAMYCIN 100 MG PO (20:39)
[2025-01-21] VITALS (13 sets, daily range): BP systolic 91–130; BP diastolic 48–79; BMI 23.5
--- NOTE | 2025-01-21 00:17 | PTCARENOTE ---
patient resting in bed comfortably. Afib on tele 115s-130. patient states mild palpitations at times. denies any lightheadedness/dizziness. bp stable. + cough noted. patient states post nasal drip at baseline. reviewed plan of care with patient and
verbalized understanding. calls appropriately.
EKG post 2nd dose of Tikosyn completed. QTc 488.
tylenol given, see mar, for a temp of 100.7. oral temperature currently- 98.6.
[2025-01-21] MEDS: ALTACE 5 MG PO (03:27)
[2025-01-21] MEDS: ELIQUIS 5 MG PO ×2 (03:27→15:37)
[2025-01-21 04:10] LABS: Procalcitonin 0.31 ng/ml (0.0-0.25)
[2025-01-21] MEDS: VIBRAMYCIN 100 MG PO ×2 (08:58→20:15)
[2025-01-21] MEDS: THERAGRAN 1 TABLET PO (08:58)
[2025-01-21] MEDS: LOPRESSOR 12.5 MG PO (08:58)
[2025-01-21] MEDS: FLUSH (NSS) 1 FLUSH IV ×2 (09:04→15:38)
[2025-01-21] MEDS: CARDIZEM 15 MG IV (10:11)
[2025-01-21] MEDS: TIKOSYN 250 MCG PO ×2 (10:49→22:17)
[2025-01-21] MEDS: TOPROL XL 50 MG PO ×2 (10:49→20:15)
--- NOTE | 2025-01-21 11:00 | PTCARENOTE ---
Received pt at change of shift resting in bed. Afib on the monitor. HR 120-130's. BP stable. pt denies any pain or SOB. Productive moist cough with green sputum noted--see shift assessment for further details. Tikosyn dose #3 administered. Pt
ambulating in room and hallway ad jeremy. Informed pt to call RN with any questions or concerns. Verbalizes understanding. Call albarado within reach.
--- NOTE | 2025-01-21 12:30 | W.PN.CD ---
Today's Communication / Plan
-
- Plan for IV diltiazem 50 mg x 1 now
- Increase metoprolol to 50 mg twice a day
- Hold ramipril
- Continue Tikosyn to 50 mcg twice a day
Impression / Plan
-
Afib - recurrent, RVR.
- symptomatic with palpitations and SOB/ALVARES.
- A-fib with RVR is complicated due to ongoing bilateral pneumonia and recent atrial hernia repair.
- admitted for Tikosyn initiation - dose 10/13 this AM.
- s/p CV 10/2024 restoring NSR.
- s/p ablation 12/2021 and again 06/2024 for Afib and Aflutter.
- on Eliquis for OAC, no missed doses. He takes Eliquis at 3am and 3pm.
- As per plan patient's diltiazem and HCTZ has been discontinued.
- Patient is noted to have bilateral pneumonia and is having RVR due to ongoing infection.
- To control ventricular response, I will increase metoprolol to 50 mg twice a day and add a single dose of IV diltiazem.
- So far patient's Tikosyn is not causing any QT prolongation.
PNA - acute on b/l lower lobes on CXR.
- consult pulmonary for evaluation/management since he follows with Dr. Medeiros.
- has COPD and chronic post nasal drip on PRN antibiotic 'cocktail' per PCP and follows with Dr. Medeiros.
- On ceftriaxone/doxycycline
CAD - s/p CABG in 1998.
- stable w/o angina.
- continue medical therapy.
HTN - stable on meds, continue.
- monitor off HCTZ since starting Tikosyn.
- With the addition of metoprolol, I will hold ramipril tonight. Will reassess if blood pressure is elevated.
HLD - stable on Crestor and Zetia with LDL < 55.
Hiatal hernia - s/p repair 12/12/[address] [facility] [address] Oneill.
Physical Exam
Vital Signs/Labs
Vital Signs
Temp Pulse Resp BP Pulse Ox
98.3 F 110 16 108/60 95
01/21/25 11:56 01/21/25 11:56 01/21/25 11:56 01/21/25 11:56 01/21/25 11:56
01/20/25 01/21/25 01/22/25
06:59 06:59 06:59
Actual Weight 74.4 kg
01/20/25 04:57
01/20/25 04:57
01/19/25
20:37
Eru-T-[place]db[place] Pept 6800
LAB Results
01/19/25
20:37
Troponin I 0.014
Physical Exam
Constitutional: No acute distress and Comfortable
EENT: Anicteric and Moist mucous membranes
Cardiovascular: Rhythm/rate is irregular, JVD present and Systolic murmur present
Respiratory: Respiratory effort normal, Crackles Present and Rhonchi Present
GI: Soft, Non tender and Normal bowel sounds
Neuro/Psych: Alert, Oriented and AO x 3
Data Reviewed
-
Date of Service: January 21, 2025
Medical Decision Making: Reviewed Test Results, Test Interpretation and Review of Case with other Provider
EKG: Tracing Personally Visualized and interpreted
Echo: Report Reviewed by me
Labs: Labs Reviewed by me
Old Records: Reviewed
--- NOTE | 2025-01-21 13:00 | PTCARENOTE ---
Post Tikosyn EKG done and QTc 467. pt now in Sinus [facility]th[facility]. Heidi Green MD made aware.
--- NOTE | 2025-01-21 14:58 | W.PN.PUL3 ---
Today's Communication / Plan
-
Continue Tikosyn as per cardiology
Continue antibiotics for suspected bibasilar pneumonia
Trend WBC
Follow-up blood + sputum cultures
Monitor for fevers (last fever was evening of 01/20)
Up OOB as tolerated
Pulmonary service to continue to briefly follow along
Assessment
-
84-year-old never smoking, male followed by Dr. Medeiros for postnasal drip and pulmonary infiltrates, who recently had paraesophageal hernia repair as well as multiple ablations was supposed to have direct admission for Tikosyn loading, but he
became more symptomatic with his atrial fibrillation including lightheadedness and shortness of breath-pulmonary was consulted for shortness of breath and chronic cough 01/20/25.
Symptomatic atrial fibrillation with rapid ventricular response, palpitations with dizziness, lightheadedness - now in NSR
Admitted for Tikosyn load
Bibasilar pneumonia
Chronic cough.
Abnormal radiographs-see discussion below.
Leukocytosis.
Mild hyperglycemia
Conditions present prior to admission:
Recent paraesophageal hernia repair- 12/2024.
Hypertension.
CAD/CABG 1998.
PAF/multiple ablations.
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
Aspiration syndrome likely from large hiatal hernia-subsequent repair
Elevated IgE-1209.
Hypogammaglobulinemia-IgG3
Postnasal drip.
Chronic recurrent bronchitis.
Bronchiectasis.
Pulmonary nodules.
Asthma
GERD
BPH
Hernia repair. Bilateral rotator cuff repair
Plan
Mild respiratory decompensation, likely related to atrial fibrillation with rapid ventricular rate-less likely chronic pulmonary complaints.
As of 01/21, respiratory status has markedly improved. Currently on room air breathing comfortably
Supplemental oxygen as needed.
Aspiration precautions.
Inhalers if needed-we'll avoid beta agonists with atrial fibrillation issues. For now.
Postnasal drip therapy - family can bring in flonase
Follow-up sputum culture collected 01/20 � NGTD
Follow-up blood cultures x2 collected 01/20/2025 � NGTD
In the setting of leukocytosis with CXR findings and fevers on 01/20/2025, continue ceftriaxone + doxycycline given suggested bilateral lower lobe pneumonia seen on CXR
Would repeat CXR in 4 to 6 weeks to follow his suspected pneumonia to resolution
Procal 0.31 on 01/21
Patient has 'cocktail' provided by primary and Dr. Medeiros in the past-'Augmentin/doxycycline' that he takes if he becomes ill.
Cardiology following-correspondence reviewed.
Continue with Tikosyn, currently on 250 mcg q12hr
Currently in NSR as of 01/21
DVT ppx: Eliquis
Reviewed with cardiology and nursing
Last saw Dr. Medeiros 06/03/24 and is rescheduled or canceled twice thereafter-recommend follow-up
Pulmonary service will continue to briefly follow along.
Diagnostic data:
Chest x-ray 01/19/25-mild bilateral lower lobe pneumonia progressed on the right and stable on the left compared to February 2024
CT chest�03/01/2024, reviewed [facility] 06/03/2024 Bilateral lower lobe peribronchial thickening and patchy parenchymal opacities again most suggestive of a chronic infectious process. Compared to the chest CT from 09/08/2023, findings are
similar in the right lower lobe but have progressed in the left lower lobe.�2. Trace left pleural effusion.�3. Large hiatal hernia.4. Stable mildly enlarged mediastinal lymph nodes.
Pulmonary function testing ( 06/03/2024� ):FEV1: postbronchodilator 2.09 L at 77%FVC:3.52 L-91%FEV1/FVC ratio:59%T.4 L-77%RV:1.79 L -72%ERV:RV/TLC ratio:33%DLCO: 16.83-69%DLCO/VA: 91%
Total time spent today was 39 minutes for this encounter. Time includes reviewing laboratory test/imaging results, reviewing pertinent medical records, obtaining and reviewing medical history, performing an appropriate exam, ordering medications,
tests and procedures. Time also includes documentation of this encounter, coordinating patient care and communicating with other healthcare professionals. Total time does not include separately billed tests performed on this date of service.
Subjective Data
-
Date of Service:
Date of Service: January 21, 2025
Chief Complaint: Pulmonary Follow Up
Subjective:
Patient seen this morning (late note entry). Multiple family members at bedside. He feels well overall. Currently walking around his room with no respiratory symptoms. Currently on room air saturating 97%. Heart rate 95, and he is in normal
sinus rhythm. He denies chest pain, MASSEY, nausea, fevers or chills -he did have a fever last night to 100.7 �F. Occasional cough although it is not bothersome.
Review of Systems
General: Other (Negative unless mentioned above)
Objective Data
Data Reviewed
Vital Signs / I&O / Oxygen:
Vital Signs
Temp Pulse Resp BP Pulse Ox
98.3 F 135 16 106/60 92
01/21/25 07:41 01/21/25 08:58 01/21/25 07:41 01/21/25 08:58 01/21/25 07:41
Intake and Output
01/20/25 01/21/25 01/22/25
06:59 06:59 06:59
Intake Total 480 / 480
Balance 480 / 480
SaO2 92
Physical Exam
General: Respiratory Distress (negative), Comfortable, Chills (negative) and Sweats (negative)
HEENT: Normocephalic and Anicteric
Cardiovascular: S1-S2, Regular Rhythm and Peripheral Edema (negative)
Respiratory: Wheeze (negative), Crackles (Bibasilar), Rhonchi (negative) and Non-Labored Respirations
GI: Soft, Non Distended, Non Tender and Normal Bowel Sounds
Neurology: AO x 3 and Tremors (negative)
Skin: Warm, Dry, Cyanosis (negative) and Jaundice (negative)
Labs/Micro/Reports
Lab Data
01/20/25 04:57
01/20/25 04:57
Microbiology
01/20/25 17:53 Mouth/Oral Cavity Gram Stain - Preliminary
01/20/25 17:53 Nasal Swab Influenza Types A & B (JOSE) - Final
Negative for Influenza A & B, NAAT
Negative results must be combined with clinical observations
and patient history.
Nucleic Acid Amplification test (NAAT)performed on the
[employer] platform.
[2025-01-21] MEDS: STERILE WATER FOR INJECTION 10 ML IV (15:36)
[2025-01-21] MEDS: ROCEPHIN 1000 MG IV (15:36)
[2025-01-21] MEDS: ZETIA 10 MG PO (15:37)
[2025-01-21] MEDS: PROSCAR 5 MG PO (18:06)
[2025-01-22] VITALS (10 sets, daily range): BP systolic 115–160; BP diastolic 59–81; BMI 23.4
--- NOTE | 2025-01-22 01:34 | PTCARENOTE ---
QTc following dose #4 Tiksoyn 481; pt. remains in NSR. Pt. has no complaints, currently sleeping.
[2025-01-22] MEDS: ELIQUIS 5 MG PO ×2 (03:37→16:13)
--- NOTE | 2025-01-22 08:59 | W.PN.CD ---
Today's Communication / Plan
-
- Continue treatment of pneumonia with antibiotics
- Continue Tikosyn loading.
- Likely discharge in the morning.
Impression / Plan
-
Afib - recurrent, RVR.
- symptomatic with palpitations and SOB/ALVARES.
- A-fib with RVR is complicated due to ongoing bilateral pneumonia and recent atrial hernia repair.
- admitted for Tikosyn initiation - dose 01/10 this AM.
- s/p CV 10/2024 restoring NSR.
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
- on Eliquis for OAC, no missed doses. He takes Eliquis at 3am and 3pm.
- As per plan patient's diltiazem and HCTZ has been discontinued.
- Patient is noted to have bilateral pneumonia and is having RVR due to ongoing infection.
- Increased metoprolol to 50 mg twice a day
- Converted to sinus 01/21/25 - Sinus with first degree AV block.
- So far patient's Tikosyn is not causing any QT prolongation.
PNA - acute on b/l lower lobes on CXR.
- consult pulmonary for evaluation/management since he follows with Dr. Medeiros.
- has COPD and chronic post nasal drip on PRN antibiotic 'cocktail' per PCP and follows with Dr. Medeiros.
- On ceftriaxone/doxycycline
CAD - s/p CABG in 1998.
- stable w/o angina.
- continue medical therapy.
HTN - stable on meds, continue.
- monitor off HCTZ since starting Tikosyn.
- With the addition of metoprolol, I will hold ramipril tonight. Will reassess if blood pressure is elevated.
HLD - stable on Crestor and Zetia with LDL < 55.
Hiatal hernia - s/p repair 12/12/[address] [facility] [address] Oneill.
Physical Exam
Vital Signs/Labs
Vital Signs
Temp Pulse Resp BP Pulse Ox
97.7 F 78 20 135/74 95
01/22/25 08:15 01/22/25 06:00 01/22/25 08:15 01/22/25 03:39 01/22/25 08:15
01/21/25 01/22/25 01/23/25
06:59 06:59 06:59
Actual Weight 74.3 kg 74.1 kg
01/20/25 04:57
01/20/25 04:57
01/19/25
20:37
Pzj-I-Hkgcwuiamtw Pept 6800
LAB Results
01/19/25
20:37
Troponin I 0.014
Physical Exam
Constitutional: No acute distress and Comfortable
EENT: Anicteric and Moist mucous membranes
Cardiovascular: Rhythm & rate is regular, Pedal edema is absent and JVD pressure is normal
Respiratory: Respiratory effort normal, Lungs clear to auscul. and Wheeze Absent
GI: Soft, Distention absent, Non tender and Normal bowel sounds
Neuro/Psych: Alert, Oriented, AO x 3 and Motor deficits absent
Data Reviewed
-
Date of Service: January 22, 2025
Medical Decision Making: Reviewed Test Results, Test Interpretation and Review of Case with other Provider
EKG: Tracing Personally Visualized and interpreted
Echo: Report Reviewed by me
Labs: Labs Reviewed by me
Old Records: Reviewed
[2025-01-22] MEDS: THERAGRAN 1 TABLET PO (09:01)
[2025-01-22] MEDS: VIBRAMYCIN 100 MG PO ×2 (09:01→20:07)
[2025-01-22] MEDS: TOPROL XL 50 MG PO ×2 (09:01→20:07)
--- NOTE | 2025-01-22 10:13 | PTCARENOTE ---
received patient this am, already washed, ambulating in hallway.monitor shows NSR, VSS. Dr. rGeen already saw patient. no further orders at this time.
[2025-01-22] MEDS: TIKOSYN 250 MCG PO ×2 (10:26→22:27)
--- NOTE | 2025-01-22 12:39 | W.PN.PUL3 ---
Addendum entered and electronically signed by Jerrell Wisdom MD 01/23/25 16:25:
CDI Inquiry Response:
Sepsis-POA
Original Note:
Today's Communication / Plan
-
Continue Tikosyn as per cardiology
Continue antibiotics for Streptococcus pneumoniae pneumonia
Would give a 7-day course total
Trend WBC
Follow-up blood Cx (NGTD)
Monitor for fevers (last fever was evening of 01/20)
Up OOB as tolerated
No additional recommendations at this time. Pulmonary service will now sign off. Outpatient pulmonary follow-up will be arranged with Dr. Medeiros. Please reconsult if there are any additional questions/concerns, or if patient's respiratory status
deteriorates.
Assessment
-
84-year-old never smoking, male followed by Dr. Medeiros for postnasal drip and pulmonary infiltrates, who recently had paraesophageal hernia repair as well as multiple ablations was supposed to have direct admission for Tikosyn loading, but he
became more symptomatic with his atrial fibrillation including lightheadedness and shortness of breath-pulmonary was consulted for shortness of breath and chronic cough 01/20/25.
Symptomatic atrial fibrillation with rapid ventricular response, palpitations with dizziness, lightheadedness - now in NSR
Admitted for Tikosyn load
Bibasilar pneumonia due to Streptococcus pneumonia
Chronic cough.
Abnormal radiographs-see discussion below.
Leukocytosis
Mild hyperglycemia
Conditions present prior to admission:
Recent paraesophageal hernia repair- 12/2024.
Hypertension.
CAD/CABG 1998.
PAF/multiple ablations.
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
Aspiration syndrome likely from large hiatal hernia-subsequent repair
Elevated IgE-1209.
Hypogammaglobulinemia-IgG3
Postnasal drip.
Chronic recurrent bronchitis.
Bronchiectasis.
Pulmonary nodules.
Asthma
GERD
BPH
Hernia repair. Bilateral rotator cuff repair
Plan
Mild respiratory decompensation, likely related to atrial fibrillation with rapid ventricular rate-less likely chronic pulmonary complaints.
As of 01/21, respiratory status has markedly improved. Currently on room air breathing comfortably
Supplemental oxygen as needed.
Aspiration precautions.
Inhalers if needed-we'll avoid beta agonists with atrial fibrillation issues. For now.
Postnasal drip therapy - family can bring in flonase
Follow-up sputum culture collected 01/20 � cultures grew Streptococcus pneumonia
Follow-up blood cultures x2 collected 01/20/2025 � NGTD
In the setting of leukocytosis with CXR findings and fevers on 01/20/2025, continue ceftriaxone + doxycycline given suggested bilateral lower lobe pneumonia seen on CXR
- Would give total of 7 days antibiotics
Would repeat CXR in 4 to 6 weeks to follow his suspected pneumonia to resolution
Procal 0.31 on 01/21
Patient has 'cocktail' provided by primary and Dr. Medeiros in the past-'Augmentin/doxycycline' that he takes if he becomes ill.
Cardiology following-correspondence reviewed.
Continue with Tikosyn, currently on 250 mcg q12hr
Currently in NSR as of 01/21
DVT ppx: Eliquis
Reviewed with cardiology and nursing
Last saw Dr. Medeiros 06/03/24 and is rescheduled or canceled twice thereafter-recommend follow-up
Patient doing well. Continue antibiotic course as stated above. No additional recommendations at this time. Pulmonary service will now sign off. Thank you for allowing us to be involved in the care of this patient. Please reconsult if there are
any additional questions/concerns, or if patient's respiratory status deteriorates.
Diagnostic data:
Chest x-ray 01/19/25-mild bilateral lower lobe pneumonia progressed on the right and stable on the left compared to February 2024
CT chest�03/01/2024, reviewed [facility] 06/03/2024 Bilateral lower lobe peribronchial thickening and patchy parenchymal opacities again most suggestive of a chronic infectious process. Compared to the chest CT from 09/08/2023, findings are
similar in the right lower lobe but have progressed in the left lower lobe.�2. Trace left pleural effusion.�3. Large hiatal hernia.4. Stable mildly enlarged mediastinal lymph nodes.
Pulmonary function testing ( 06/03/2024� ):FEV1: postbronchodilator 2.09 L at 77%FVC:3.52 L-91%FEV1/FVC ratio:59%T.4 L-77%RV:1.79 L -72%ERV:RV/TLC ratio:33%DLCO: 16.83-69%DLCO/VA: 91%
Total time spent today was 36 minutes for this encounter. Time includes reviewing laboratory test/imaging results, reviewing pertinent medical records, obtaining and reviewing medical history, performing an appropriate exam, ordering medications,
tests and procedures. Time also includes documentation of this encounter, coordinating patient care and communicating with other healthcare professionals. Total time does not include separately billed tests performed on this date of service.
Subjective Data
-
Date of Service:
Date of Service: January 22, 2025
Chief Complaint: Pulmonary Follow Up
Subjective:
Patient seen earlier this morning (late note entry). He continues to feel well and is in normal sinus rhythm. Heart rate 75, BP 115/68 and saturating 96% on room air. He says he is breathing better today. Currently denies SOB, chest pain, MASSEY,
fevers or chills
Review of Systems
General: Other (Negative unless mentioned above)
Objective Data
Data Reviewed
Vital Signs / I&O / Oxygen:
Vital Signs
Temp Pulse Resp BP Pulse Ox
97.7 F 77 20 131/59 95
01/22/25 08:15 01/22/25 09:01 01/22/25 08:15 01/22/25 09:01 01/22/25 08:15
Intake and Output
01/21/25 01/22/25 01/23/25
06:59 06:59 06:59
Intake Total 480 / 480 1357.6 / 1357.6
Balance 480 / 480 1357.6 / 1357.6
SaO2 95
Physical Exam
General: Respiratory Distress (negative), Comfortable, Chills (negative) and Sweats (negative)
HEENT: Normocephalic and Anicteric
Cardiovascular: S1-S2, Regular Rhythm and Peripheral Edema (negative)
Respiratory: Wheeze (Faintly heard upon expiration in the bases), Crackles (Bibasilar), Rhonchi (negative) and Non-Labored Respirations
GI: Soft, Non Distended, Non Tender and Normal Bowel Sounds
Neurology: AO x 3 and Tremors (negative)
Skin: Warm, Dry, Cyanosis (negative) and Jaundice (negative)
Labs/Micro/Reports
Lab Data
01/20/25 04:57
01/20/25 04:57
Microbiology
01/20/25 17:53 Mouth/Oral Cavity Gram Stain - Preliminary
01/20/25 17:53 Blood/Venous Blood Culture - Preliminary
No Growth in 24 hours- Final report to follow
01/20/25 17:59 Blood/Venous Blood Culture - Preliminary
No Growth in 24 hours- Final report to follow
01/20/25 17:53 Nasal Swab Influenza Types A & B (JOSE) - Final
Negative for Influenza A & B, NAAT
Negative results must be combined with clinical observations
and patient history.
Nucleic Acid Amplification test (NAAT)performed on the
[employer] platform.
[2025-01-22] MEDS: ROCEPHIN 1000 MG IV (16:13)
[2025-01-22] MEDS: STERILE WATER FOR INJECTION 10 ML IV (16:13)
[2025-01-22] MEDS: ZETIA 10 MG PO (16:13)
[2025-01-22] MEDS: FLUSH (NSS) 1 FLUSH IV (16:14)
[2025-01-22] MEDS: PROSCAR 5 MG PO (17:45)
[2025-01-22] MEDS: CRESTOR 20 MG PO (17:45)
--- NOTE | 2025-01-22 23:08 | PTCARENOTE ---
Assumed care on pt at 1900, resting with no c/o pain/SOB/dizziness. SR on the monitor with HR 60-70's. Pox 95% RA, occ MILK POWDER GRINDER cough, lung sound coarse b/l upper lobes, afebrile. Tikosyn #6 given, tolerated well, BP stable. Call albarado within reach.
[2025-01-23] MEDS: ELIQUIS 5 MG PO (03:23)
[2025-01-23 03:25] VITALS: BP 125/67
[2025-01-23 06:00] VITALS: BMI 23.4
[2025-01-23 07:54] VITALS: BP 147/80
[2025-01-23] MEDS: THERAGRAN 1 TABLET PO (08:47)
[2025-01-23] MEDS: VIBRAMYCIN 100 MG PO (08:47)
[2025-01-23] MEDS: TOPROL XL 50 MG PO (08:47)
[2025-01-23 08:48] VITALS: BP 149/65
[2025-01-23] MEDS: FLUSH (NSS) 1 FLUSH IV (08:49)
--- NOTE | 2025-01-23 09:24 | W.PN.CD ---
Today's Communication / Plan
-
- Resume Ramipril
- Discharge on Metoprolol 50 mg BID and Tikosyn 250 mcg q12h.
- Discontinued HCTZ and Diltiazem.
- discuss with Pulm regarding discharge outpatient antibiotics regimen.
Impression / Plan
-
Afib - recurrent, RVR.
- symptomatic with palpitations and SOB/ALVARES.
- A-fib with RVR is complicated due to ongoing bilateral pneumonia and recent atrial hernia repair.
- admitted for Tikosyn initiation - completed loading dose 02/10 last night.
- s/p CV 10/2024 restoring NSR with recurrence post DCCV. .
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
- on Eliquis for OAC, no missed doses. He takes Eliquis at 3am and 3pm.
- As per plan patient's diltiazem and HCTZ has been discontinued.
- Patient is noted to have bilateral pneumonia and is having RVR due to ongoing infection.
- Increased metoprolol to 50 mg twice a day
- Converted to sinus 01/21/25 - Sinus with first degree AV block.
- So far patient's Tikosyn is not causing any QT prolongation.
- Stable for discharge today.
- OK to resume Ramipril
PNA - acute on b/l lower lobes on CXR.
- consult pulmonary for evaluation/management since he follows with Dr. Medeiros.
- has COPD and chronic post nasal drip on PRN antibiotic 'cocktail' per PCP and follows with Dr. Medeiros.
- On ceftriaxone/doxycycline
- Will discuss with Pulm regarding discharge outpatient antibiotics regimen.
CAD - s/p CABG in 1998.
- stable w/o angina.
- continue medical therapy.
HTN - stable on meds, continue.
- Metoprolol is started and OK to resume ramipril today
HLD - stable on Crestor and Zetia with LDL < 55.
Hiatal hernia - s/p repair 12/12/[address] [facility] [address] Oneill.
Physical Exam
Vital Signs/Labs
Vital Signs
Temp Pulse Resp BP Pulse Ox
98.2 F 71 16 149/65 96
01/23/25 07:54 01/23/25 08:47 01/23/25 07:54 01/23/25 08:47 01/23/25 07:54
01/22/25 01/23/25 01/24/25
06:59 06:59 06:59
Actual Weight 74.1 kg 74 kg
01/20/25 04:57
01/20/25 04:57
01/19/25
20:37
Wak-N-Xhidapltsev Pept 6800
Physical Exam
Constitutional: No acute distress and Comfortable
EENT: Anicteric and Moist mucous membranes
Cardiovascular: Rhythm & rate is regular, Pedal edema is absent and JVD pressure is normal
Respiratory: Respiratory effort normal, Lungs clear to auscul. and Crackles Absent
GI: Soft, Distention absent and Normal bowel sounds
Neuro/Psych: Alert, Oriented and AO x 3
Data Reviewed
-
Date of Service: January 23, 2025
Medical Decision Making: Reviewed Test Results, Test Interpretation and Review of Case with other Provider
Labs: Labs Reviewed by me
Old Records: Reviewed
[2025-01-23] MEDS: TIKOSYN 250 MCG PO (10:30)
--- NOTE | 2025-01-23 11:17 | W.DS.TRANS ---
DC Summary - [facility]
-
Discharge Instructions:
Sleep Apnea Risk Intermediate
Discharge Diagnosis/Procedures Atrial fibrillation with rapid ventricular
response
Dofetilide loading
Pneumonia
Diet Low Cholesterol
Activity As tolerated
Driving Restrictions As prior to admission
Bathing Restrictions None
Instructions:
Stand-Alone Forms:
Changes to Home Medications: Yes
Discharge Medications:
DC Medications w/original date entered in [facility]
ezetimibe 10 mg tablet 10 mg PO DAILY@1500 High Cholesterol 02/23/19
rosuvastatin 20 mg tablet 20 mg PO DAILY@1900 High Cholesterol 02/23/19
nitroglycerin 0.4 mg sublingual tablet 0.4 mg sublingual [id number] PRN chest pain 09/24/20
coenzyme Q10 100 mg capsule (CoQ-10) 100 mg PO DAILY@1900 Supplement 06/02/24
finasteride 5 mg tablet 5 mg PO QPM Urinary Issue 06/27/24
multivitamin 1 tab PO DAILY Supplement 10/20/24
ramipril 5 mg capsule 5 mg PO BID@0300,1500 Blood Pressure 12/05/24
apixaban 5 mg tablet (Eliquis) 5 mg PO BID@0300,1500 Blood Clot Prevention/Tx 01/19/25
amoxicillin 500 mg-potassium clavulanate 125 mg tablet (Augmentin) 1 tab PO TID #24 tabs 01/23/25
dofetilide 250 mcg capsule 250 mcg PO Q12H #60 caps 01/23/25
doxycycline hyclate 100 mg capsule 100 mg PO Q12 #8 caps 01/23/25
metoprolol succinate 50 mg tablet,extended release 24 hr 50 mg PO BID #60 tabs 01/23/25
polyethylene glycol 3350 17 gram oral powder packet 17 g PO DAILYPRN PRN constipation #1 ea 01/23/25
Home Medication Changes
Discontinue: Diltiazem, HCTZ
New: Dofetilide, metoprolol succinate 50 mg, Augmentin, doxycycline, MiraLAX
Pending Results: No
[2025-01-23 11:58] VITALS: BP 141/75
--- NOTE | 2025-01-23 12:08 | CM ---
Chart reviewed. I called patient's [facility] and his Tikosyn dose is in stock. Patient will receive a 3 day supply to go.
--- NOTE | 2025-01-23 12:42 | PTCARENOTE ---
D/C instructions given to patient , verbalizes understanding. Karolina from pharmacy given to patient.INT D/C'd, telemetry D/C'd, personal belongings packed and sent home with patient. D/C to home via wc accompanied by staff.
--- NOTE | 2025-01-23 12:58 | PN.CDI ---
CDI
- -
CDI:
Physician Documentation Request
Admit Date: 01/19/25 23:41
Dear Doctor,
Please review the following and provide your response in the progress notes.
Clinical Indicators:
Pt admitted with Afib with RVR Tikosyn therapy/ Strep pneumonia on doxycycline/Ceftriaxone
On admission WBC 18.6, HR 137 ( also in afib ),Respirations 30
Pulmonology progress note 01/22, ' Continue antibiotics for Streptococcus pneumoniae pneumonia Would give a 7-day course total Trend WBC Follow-up blood Cx (NGTD) Monitor for fevers (last fever was evening of 01/20)..'
Please clarify which of the following most accurately describes the status of the patient's infection:
Sepsis-POA
- Systemic manifestations of infection, with 2 or more SIRS criteria which include:
- Fever >100.9 degrees F or hypothermia < 96.8 degrees F
- Leukocytosis - WBC > 12,000 or leukopenia - WBC < 4,000 or > 10% bands
- Tachycardia > 90 beats per minute
- Tachypnea - RR > 20 breaths per minute or PaCO2 , 32mmHg
Source: Merck Manual 2013
Strep Pneumonia only , Without Systemic Illness
Other ( please specify)
Use of terms such as suspected, likely, concern for, or probable (associated with a specific diagnosis that is being evaluated, monitored, or treated as if it exists) are acceptable and can be coded in the inpatient setting, when documented at the
time of discharge.
Thank you,
Sasha Boyle RN
CDI Specialist
[place] [facility]
Please use your independent medical judgment in providing your response.
--- NOTE | 2025-01-23 13:04 | PN.CDI ---
CDI
- -
CDI:
Physician Documentation Request
Admit Date: 01/19/25 23:41
Dear Doctor/ NURSE MIDWIFE,
Please review the following and provide your response in the progress notes.
Clinical Indicators:
Pt admitted with Afib with RVR Tikosyn therapy/ Strep pneumonia on doxycycline/Ceftriaxone
Documented throughout the record, ' Afib - recurrent, RVR.... 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
If possible, please provide further specificity regarding atrial fibrillation, such as:
Paroxysmal atrial fibrillation - terminates spontaneously or with intervention within 7 days of onset
Persistent atrial fibrillation - episodes of continuous AF that last more than 7 days and do not self-terminate
Permanent atrial fibrillation - when a decision has been made to accept the presence of AF and there is no further attempt to restore or maintain sinus rhythm
Other - please specify
Use of terms such as suspected, likely, concern for, or probable (associated with a specific diagnosis that is being evaluated, monitored, or treated as if it exists) are acceptable and can be coded in the inpatient setting, when documented at the
time of discharge.
Thank you,
Sasha Boyle RN
CDI Specialist
[place] [facility]
Please use your independent medical judgment in providing your response.
== END 2025-01-23 13:00 | disposition home or self-care (01) | DRG 308 ==
LOC: IVU 23:41
PROVIDERS: Nurse Practitioner Family; Nurse Practitioner Gerontology; ADMITTING PHYSICIAN Internal Medicine; CONSULT PHYSICIAN Internal Medicine Critical Care Medicine; EMERGENCY PHYSICIAN Student in an Organized Health Care Education/Training Program; FAMILY PHYSICIAN Family Medicine; OTHER PHYSICIAN Internal Medicine Cardiovascular Disease
DX: I48.0 Paroxysmal atrial fibrillation (principal); A41.9 Sepsis, unspecified organism; J15.4 Pneumonia due to other streptococci; D80.1 Nonfamilial hypogammaglobulinemia; J44.0 Chronic obstructive pulmonary disease with (acute) lower respiratory infection; J47.0 Bronchiectasis with acute lower respiratory infection; N17.9 Acute kidney failure, unspecified; I25.10 Atherosclerotic heart disease of native coronary artery without angina pectoris; I10 Essential (primary) hypertension; Z79.01 Long term (current) use of anticoagulants; E78.00 Pure hypercholesterolemia, unspecified; B95.3 Streptococcus pneumoniae as the cause of diseases classified elsewhere; K21.9 Gastro-esophageal reflux disease without esophagitis; N40.0 Benign prostatic hyperplasia without lower urinary tract symptoms; Z95.1 Presence of aortocoronary bypass graft; Z11.52 Encounter for screening for COVID-19
CPT/HCPCS: 71046; 80048; 80053; 83605; 83880; 84145; 84484; 85025; 87040; 87070; 87071; 87186; 87205; 87502; 87811; 93005; 99285

== ENCOUNTER → 2025-02-24 12:48 | Outpatient (REF) | payer MEDICARE, OTHER, SELFPAY | LOC: HWRAD 12:48 | PROVIDERS: ATTENDING PHYSICIAN Internal Medicine Critical Care Medicine; FAMILY PHYSICIAN Family Medicine | DX: J44.9 Chronic obstructive pulmonary disease, unspecified (principal); T17.8 Foreign body in other parts of respiratory tract | CPT/HCPCS: 71250 ==

== ENCOUNTER → 2025-04-28 08:37 | Outpatient (REF) | payer MEDICARE, OTHER, SELFPAY ==
[2025-04-28 10:04] LABS: Microalb - Urine Creatinine 67.400 mg/dl
[2025-04-28 10:10] LABS: ALT (SGPT) 53 U/L (0-50); AST (SGOT) 32 U/L (17-59); Albumin 4.4 g/dl (3.5-5.0); Alkaline Phosphatase 53 U/L (38-126); Blood Urea Nitrogen 23 mg/dl (9-20); Calcium 9.5 mg/dl (8.4-10.2); Carbon Dioxide 28 mmol/L (22-30); Chloride 104 mmol/L (98-107); Glucose 93 mg/dl (70-99); Microalbumin, Random Urine 1.8 mg/dl (0.6-1.7); Potassium 5.3 mmol/L (3.5-5.1); Sodium 139 mmol/L (135-145); Total Protein 7.3 g/dl (6.3-8.2); eGFR > 60.00
== END ==
LOC: REG 08:37
PROVIDERS: ATTENDING PHYSICIAN Nurse Practitioner; FAMILY PHYSICIAN Family Medicine; OTHER PHYSICIAN Specialist
DX: I48.0 Paroxysmal atrial fibrillation (principal); E78.5 Hyperlipidemia, unspecified; I25.10 Atherosclerotic heart disease of native coronary artery without angina pectoris
CPT/HCPCS: 36415; 80053; 82043; 82570

== ENCOUNTER → 2025-07-17 09:15 | Outpatient (REF) | payer MEDICARE, OTHER, SELFPAY ==
[2025-07-17 20:30] LABS: Urine Character Clear (Clear)
[2025-07-17 20:49] LABS: Urine Red Blood Cell 0-2 /HPF (0-2); Urine Squamous Cell 0-2 /LPF (Few); Urine White Cell 0-2 /HPF (0-5)
== END ==
LOC: CLAB 09:15
PROVIDERS: ATTENDING PHYSICIAN Specialist
DX: N39.0 Urinary tract infection, site not specified (principal)
CPT/HCPCS: 81003; 81015; 87086